=== PATIENT | female | born 1950 | race Caucasian/White ===

== ENCOUNTER → 2019-10-08 08:43 | Outpatient (CLI) | payer MEDICARE, OTHER, SELFPAY | PROVIDERS: Visit Provider Family Medicine | DX: I87.2 Venous insufficiency (chronic) (peripheral) (principal); L97.311 Non-pressure chronic ulcer of right ankle limited to breakdown of skin; L03.115 Cellulitis of right lower limb; Z91.19 Patient's noncompliance with other medical treatment and regimen | CPT/HCPCS: 11042; 87070; 87077; 87186; 87205; 99203; 99213 ==

== ENCOUNTER → 2019-10-15 08:28 | Outpatient (CLI) | payer MEDICARE, OTHER, SELFPAY | PROVIDERS: Visit Provider Family Medicine | DX: I87.2 Venous insufficiency (chronic) (peripheral) (principal); L97.311 Non-pressure chronic ulcer of right ankle limited to breakdown of skin; L03.115 Cellulitis of right lower limb; R60.0 Localized edema; Z91.19 Patient's noncompliance with other medical treatment and regimen | CPT/HCPCS: 97597 ==

== ENCOUNTER → 2019-10-22 09:22 | Outpatient (CLI) | payer MEDICARE, OTHER, SELFPAY | PROVIDERS: Visit Provider Family Medicine | DX: I87.2 Venous insufficiency (chronic) (peripheral) (principal); L97.811 Non-pressure chronic ulcer of other part of right lower leg limited to breakdown of skin; Z91.19 Patient's noncompliance with other medical treatment and regimen; R60.9 Edema, unspecified | CPT/HCPCS: 97597 ==

== ENCOUNTER → 2019-10-29 08:33 | Outpatient (CLI) | payer MEDICARE, OTHER, SELFPAY | PROVIDERS: Referring Provider Family Medicine; Visit Provider Family Medicine | DX: I87.2 Venous insufficiency (chronic) (peripheral) (principal); L97.311 Non-pressure chronic ulcer of right ankle limited to breakdown of skin; R60.0 Localized edema; Z91.19 Patient's noncompliance with other medical treatment and regimen | CPT/HCPCS: 97597 ==

== ENCOUNTER → 2019-11-04 08:42 | Outpatient (CLI) | payer MEDICARE, OTHER, SELFPAY | PROVIDERS: Referring Provider Family Medicine; Visit Provider Family Medicine | DX: I87.2 Venous insufficiency (chronic) (peripheral) (principal); L97.311 Non-pressure chronic ulcer of right ankle limited to breakdown of skin; R60.0 Localized edema | CPT/HCPCS: 87070; 87075; 87077; 87147; 87186; 87205; 97597; 99214 ==

== ENCOUNTER → 2019-11-12 08:32 | Outpatient (CLI) | payer MEDICARE, OTHER, SELFPAY | PROVIDERS: PCP Family Medicine; Referring Provider Family Medicine; Visit Provider Family Medicine | DX: I87.2 Venous insufficiency (chronic) (peripheral) (principal); L97.311 Non-pressure chronic ulcer of right ankle limited to breakdown of skin; R60.0 Localized edema; Z91.19 Patient's noncompliance with other medical treatment and regimen | CPT/HCPCS: 97597 ==

== ENCOUNTER → 2019-11-19 08:40 | Outpatient (CLI) | payer MEDICARE, OTHER, SELFPAY | PROVIDERS: PCP Family Medicine; Referring Provider Family Medicine; Visit Provider Family Medicine | DX: I87.2 Venous insufficiency (chronic) (peripheral) (principal); L97.311 Non-pressure chronic ulcer of right ankle limited to breakdown of skin; R60.0 Localized edema | CPT/HCPCS: 99213 ==

== ENCOUNTER → 2019-11-26 10:10 | Outpatient (CLI) | payer MEDICARE, OTHER, SELFPAY | PROVIDERS: PCP Family Medicine; Referring Provider Family Medicine; Visit Provider Family Medicine | DX: I87.2 Venous insufficiency (chronic) (peripheral) (principal); L97.311 Non-pressure chronic ulcer of right ankle limited to breakdown of skin; R60.0 Localized edema | CPT/HCPCS: 99213 ==

== ENCOUNTER → 2019-12-03 10:31 | Outpatient (CLI) | payer MEDICARE, OTHER, SELFPAY | PROVIDERS: PCP Family Medicine; Referring Provider Family Medicine; Visit Provider Family Medicine | DX: I87.2 Venous insufficiency (chronic) (peripheral) (principal); L97.311 Non-pressure chronic ulcer of right ankle limited to breakdown of skin; L97.811 Non-pressure chronic ulcer of other part of right lower leg limited to breakdown of skin; R60.0 Localized edema; Z91.19 Patient's noncompliance with other medical treatment and regimen | CPT/HCPCS: 11042 ==

== ENCOUNTER → 2019-12-10 08:54 | Outpatient (CLI) | payer MEDICARE, OTHER, SELFPAY | PROVIDERS: PCP Family Medicine; Referring Provider Family Medicine; Visit Provider Family Medicine | DX: I87.2 Venous insufficiency (chronic) (peripheral) (principal); L97.811 Non-pressure chronic ulcer of other part of right lower leg limited to breakdown of skin; R60.0 Localized edema; Z91.19 Patient's noncompliance with other medical treatment and regimen | CPT/HCPCS: 11042; 87070; 87075; 87077; 87147; 87186; 87205 ==

== ENCOUNTER → 2020-05-29 10:54 | Outpatient (ROUT) | payer MEDICARE, OTHER, SELFPAY ==
[2020-05-29 11:09] LABS: D Dimer 683 ng/mL (<230)
== END ==
PROVIDERS: PCP Family Medicine; Visit Provider Family Medicine
DX: L97.909 Non-pressure chronic ulcer of unspecified part of unspecified lower leg with unspecified severity (principal)
CPT/HCPCS: 85379

== ENCOUNTER → 2020-05-29 12:44 | Outpatient (CLI) | payer MEDICARE, OTHER, SELFPAY ==
--- NOTE | 2020-05-29 | DI.US.S_ITS ---
PROCEDURE: US PERIPH VENOUS LOW EXTREM RT INDICATIONS: PAIN, EDEMA TECHNIQUE: Real-time imaging, as well as color and pulse Doppler interrogation, were performed of the lower extremity deep veins from the inguinal ligament to the popliteal fossa. COMPARISON: None. FINDINGS: The common femoral, femoral and popliteal veins are normally compressible, and free of intraluminal thrombus. Color and pulse Doppler demonstrate normal phasic intraluminal flow. There is normal augmentation response to distal compression maneuver. There is superficial venous thrombosis seen within the greater saphenous vein, which is relatively extensive. IMPRESSION: No thuan deep venous thrombosis is seen. However, relatively extensive greater saphenous vein thrombosis is seen. Note: Concordant preliminary findings given by the rack pusher upon the completion of the examination to [place] at 1:49 p.m. on May 29, 2020. Dictated by: Isaiah Lemons M.D. on 05/29/2020 at 14:31 Approved by: Isaiah Lemons M.D. on 05/29/2020 at 14:32
== END ==
PROVIDERS: PCP Family Medicine; Referring Provider Family Medicine; Visit Provider Family Medicine
DX: I82.811 Embolism and thrombosis of superficial veins of right lower extremity (principal); R60.0 Localized edema; M79.604 Pain in right leg; L97.909 Non-pressure chronic ulcer of unspecified part of unspecified lower leg with unspecified severity
CPT/HCPCS: 85379; 93971

== ENCOUNTER 2020-12-07 15:09 | Emergency (ER) | payer MEDICARE, OTHER, SELFPAY ==
[2020-12-07] VITALS (17 sets, daily range): BP systolic 149–217; BP diastolic 75–111; PULSE 70–146; RESP 20–43; TEMP 37.1; O2SAT 81–99; BMI 44.8
--- NOTE | 2020-12-07 15:10 | DI.RAD.S_ITS ---
PROCEDURE: XR CHEST 1V INDICATIONS: chest pain TECHNIQUE: One view of the chest was acquired. COMPARISON: [facility], CT, CT ANGIO CHEST PE PROTOCOL, 12/07/2020, 16:33. FINDINGS: Surgical changes and devices: None. Lungs and pleura: Lungs are clear. No pleural effusions or pneumothorax. Mediastinum: Mediastinal contours appear normal. Heart is enlarged. Bones and chest wall: No suspicious bony lesions. Overlying soft tissues appear unremarkable. IMPRESSION: No acute cardiopulmonary disease process. Dictated by: Elisa Harmon MD, PhD on 12/07/2020 at 16:47 Approved by: Elisa Harmon MD, PhD on 12/07/2020 at 16:48
--- NOTE | 2020-12-07 15:23 | ED_ITS ---
HPI - SOB/Dyspnea General Chief Complaint: Shortness of Breath/Dyspnea Stated Complaint: SOB Time Seen by Provider: 12/07/20 15:20 Source: patient Mode of arrival: Wheelchair Limitations: no limitations History of Present Illness HPI Narrative: Patient is a 70-year-old female with prior history of DVT in April which was treated conservatively without any anticoagulation presents today with increasing shortness of breath. She says that she has not felt quite right for about the last 2 weeks. She has definitely nose over the past few days that her left leg is much more swollen. She is able to walk and be active. However today day for shortness of breath is significantly worse. She denies any chest pain she actually is found to be in AFib with RVR and was quite hypoxic on arrival. She denies any fever chills or COVID exposure. She denies any productive cough. No prior history of atrial fibrillation. MD Complaint: shortness of breath Onset (ago): day(s) Exacerbating factors: exertion Related Data Allergies Allergy/AdvReac Type Severity Reaction Status Date / Time No Known Drug Allergies Allergy Verified 12/07/20 15:30 Review of Systems Review of Systems ROS Unobtainable: All systems reviewed & are unremarkable except as noted in HPI and below Constitutional Constitutional: Denies chills, Denies fever(s), Denies lethargy and Denies weakness ENT Ears, Nose, Mouth, and Throat: Denies vertigo and Denies dizziness Cardiovascular Cardiovascular: Denies acrocyanosis, Denies chest pain, Reports irregular heart rhythm, Reports dyspnea, Reports dyspnea on exertion and Denies orthopnea Respiratory Respiratory: Reports as per HPI, Denies chest congestion, Denies cough, Reports dyspnea and Reports dyspnea on exertion Gastrointestinal Gastrointestinal: Denies abdominal pain, Denies change in bowel habits, Denies diarrhea, Denies nausea and Denies vomiting Musculoskeletal Musculoskeletal: Denies back pain, Denies myalgias and Denies muscle cramps Integumentary/Breasts Skin/Breast: Denies pruritus, Denies erythema, Denies rash and Denies wounds Neurologic Neurologic: Denies vertigo, Denies dizziness and Denies weakness Patient History Medical History DVT (deep venous thrombosis) Social History Smoking Status: Former smoker Exam Initial Vital Signs Initial Vital Signs: Vital Signs Pulse Rate 138 H 12/07/20 15:19 Respiratory Rate 23 12/07/20 15:19 Pulse Oximetry 99 12/07/20 15:19 GENERAL: Alert pleasant 70-year-old female and in no acute distress. HEENT: Head atraumatic,EOMI, pupils reactive, face symmetric, moist mucous membranes CARDIOVASCULAR: Regular rate and rhythm without murmurs, rubs or gallops. RESPIRATORY: Breath sounds equal bilaterally, no wheezes rales or rhonchi. ABDOMEN: Soft, nontender. Normoactive bowel sounds all 4 quadrants. No guarding or rebound. EXTREMITIES: Normal range of motion, no clubbing. Chronic venous stasis noted on right lower leg significant swelling of the left leg Neurovascularly intact NEUROLOGICAL: Alert and oriented x4.Normal gait and speech. Cranial nerves II through XII grossly intact. SKIN: Warm, dry, no laceration, no petechiae, no rashes or lesions. Course Orders Ordered: ED Orders 12/07/20 15:10 XR chest 1V Stat EKG-12 Lead Stat 12/07/20 15:15 COVID19 Stat 12/07/20 15:37 BNP [NT-proBNP (BNP-Adult 18+)] Stat Complete Blood Count AUTO DIFF Stat Comprehensive Metabolic Panel Stat Lipase Stat Partial Thromboplastin Time Stat Prothrombin Time INR Stat Troponin & CK Cardiac Panel Stat 12/07/20 15:42 CT angio chest PE protocol Stat US periph venous low extrem lt Stat Heparin Sodium/Dextrose (Heparin Drip) 25,000 unit in 500 mls @ 24 mls/hr IV CONT RADHA; Protocol Last Titration: 12/07/20 18:55 Dose: 0 units/hr, 0 mls/hr Documented by: Admin: 12/07/20 17:16 Dose: 1,200 units/hr, 24 mls/hr Documented by: ANKIT Discontinued Medications Diltiazem HCl (Diltiazem 5 Mg/Ml Sdv) 10 mg IV NOW ONE Stop: 12/07/20 15:43 Last Admin: 12/07/20 16:06 Dose: 10 mg Documented by: ANKIT Heparin Sodium (Porcine) (Heparin 5,000 Unit/Ml Vial) 7,500 unit IV NOW ONE Stop: 12/07/20 16:53 Last Admin: 12/07/20 17:14 Dose: 7,500 unit Documented by: ANKIT Vital Signs Vital signs: Vital Signs - 8 hr 12/07/20 15:19 12/07/20 15:22 12/07/20 15:30 Temperature 98.7 F Pulse Rate 138 H 138 H 146 H Respiratory Rate 23 28 H 29 H Blood Pressure 213/111 H Pulse Oximetry 99 81 L 97 12/07/20 15:45 12/07/20 16:00 12/07/20 16:06 Temperature Pulse Rate 143 H 134 H 138 H Respiratory Rate 40 H 26 H Blood Pressure 217/99 H Pulse Oximetry 94 94 12/07/20 16:08 12/07/20 16:15 12/07/20 16:18 Temperature Pulse Rate 133 H 88 91 H Respiratory Rate 20 22 25 H Blood Pressure 217/99 H 149/75 H Pulse Oximetry 94 96 95 12/07/20 16:47 12/07/20 17:00 12/07/20 17:15 Temperature Pulse Rate 70 116 H 125 H Respiratory Rate 20 25 H Blood Pressure Pulse Oximetry 84 L 97 99 12/07/20 17:30 12/07/20 17:45 12/07/20 18:00 Temperature Pulse Rate 120 H 128 H 131 H Respiratory Rate 28 H 23 37 H Blood Pressure Pulse Oximetry 98 99 99 12/07/20 18:15 12/07/20 18:30 Temperature Pulse Rate 114 H 137 H Respiratory Rate 27 H 43 H Blood Pressure Pulse Oximetry 98 98 MDM - SOB/Dyspnea Lab Data Attestation: I reviewed the patient's lab results. Result diagrams: 12/07/20 15:37 12/07/20 15:37 Labs: Lab Results 12/07/20 12/07/20 12/07/20 Range/Units 15:15 15:37 15:37 WBC 9.8 (4.5-11.0) X10^3/uL RBC 4.86 (4.0-5.2) X10^6/uL Hgb 13.7 (12.0-16.0) g/dL Hct 41.2 (36-46) % MCV 84.8 (80-100) fL MCH 28.1 (26-34) PG MCHC 33.1 (30-36) % RDW 14.3 (11.6-14.8) % Plt Count 230 (150-400) X10^3/uL Neut % (Auto) 78.9 H (50-75) % Lymph % (Auto) 14.2 L (25-40) % [place] % (Auto) 4.3 (3-14) % Eos % (Auto) 1.4 L (2-4) % Baso % (Auto) 1.2 (0-2) % Neut # (Auto) 7700 H (1768-6701) /uL Lymph # (Auto) 1400 (5881-6009) /uL [place] # (Auto) 400 (0-900) /uL Eos # (Auto) 100 (0-450) /uL Baso # (Auto) 100 (0-100) /uL PT 13.1 H (10.1-12.7) SECONDS INR 1.2 (0.9-1.3) APTT 29 (26.4-36.2) SECONDS Sodium (137-145) mmol/L Potassium (3.4-5.1) mmol/L Chloride (98-107) mmol/L Carbon Dioxide (22-32) mmol/L BUN (7-17) mg/dL Creatinine (0.52-1.04) mg/dL Estimated GFR (>60) mL/min BUN/Creatinine Ratio (6-22) Glucose (80-110) mg/dL Calcium (8.4-10.2) mg/dL Total Bilirubin (0.2-1.3) mg/dL AST (14-36) IU/L ALT (<35) IU/L Alkaline Phosphatase (38-126) U/L Total Creatine Kinase (30-135) U/L CK-MB (CK-2) CK-MB (CK-2) Rel Index Troponin I (0.01-0.034) ng/mL NT-Pro-B Natriuret Pep (<125) pg/mL Total Protein (6.3-8.2) g/dL Albumin (3.5-5.0) g/dL Globulin (1.7-4.1) g/dL Albumin/Globulin Ratio (1.0-2.8) Lipase (23-300) U/L SARS-CoV-2 (PCR) Negative (Negative) 12/07/20 Range/Units 15:37 WBC (4.5-11.0) X10^3/uL RBC (4.0-5.2) X10^6/uL Hgb (12.0-16.0) g/dL Hct (36-46) % MCV (80-100) fL MCH (26-34) PG MCHC (30-36) % RDW (11.6-14.8) % Plt Count (150-400) X10^3/uL Neut % (Auto) (50-75) % Lymph % (Auto) (25-40) % [place] % (Auto) (3-14) % Eos % (Auto) (2-4) % Baso % (Auto) (0-2) % Neut # (Auto) (5938-0062) /uL Lymph # (Auto) (8514-7392) /uL [place] # (Auto) (0-900) /uL Eos # (Auto) (0-450) /uL Baso # (Auto) (0-100) /uL PT (10.1-12.7) SECONDS INR (0.9-1.3) APTT (26.4-36.2) SECONDS Sodium 139 (137-145) mmol/L Potassium 4.2 (3.4-5.1) mmol/L Chloride 105 (98-107) mmol/L Carbon Dioxide 26 (22-32) mmol/L BUN 21 H (7-17) mg/dL Creatinine 1.13 H (0.52-1.04) mg/dL Estimated GFR 47.3 L (>60) mL/min BUN/Creatinine Ratio 18.6 (6-22) Glucose 148 H (80-110) mg/dL Calcium 9.8 (8.4-10.2) mg/dL Total Bilirubin 0.9 (0.2-1.3) mg/dL AST 25 (14-36) IU/L ALT 16 (<35) IU/L Alkaline Phosphatase 93 (38-126) U/L Total Creatine Kinase 53 (30-135) U/L CK-MB (CK-2) TNP CK-MB (CK-2) Rel Index TNP Troponin I 0.062 H (0.01-0.034) ng/mL NT-Pro-B Natriuret Pep 1700 H (<125) pg/mL Total Protein 8.3 H (6.3-8.2) g/dL Albumin 4.4 (3.5-5.0) g/dL Globulin 3.9 (1.7-4.1) g/dL Albumin/Globulin Ratio 1.1 (1.0-2.8) Lipase 87 (23-300) U/L SARS-CoV-2 (PCR) (Negative) Imaging Data CT scan - chest: Radiologist's Impression: PROCEDURE: CT ANGIO CHEST PE PROTOCOL INDICATIONS: hypoxia TECHNIQUE: After the administration of intravenous contrast, 2 mm thick sections acquired from the pulmonary apices to the posterior costophrenic angles. 3-dimensional maximum intensity projection (MIP) coronal and sagittal reformats were then acquired through the thorax. For radiation dose reduction, the following was used: automated exposure control, adjustment of mA and/or kV according to patient size. COMPARISON: None. FINDINGS: Image quality: Excellent. Pulmonary arteries: Large bilateral saddle emboli are noted in the main pulmonary arteries extending into the bilateral upper, bilateral lower and right middle lobar arteries, segmental arteries and subsegmental arteries. Lungs and pleura: Lungs are clear. No pleural effusions or pneumothorax. Central and peripheral airways are patent. Mediastinum: Heart size is normal, without pericardial effusion. Heart RV/LV ratio approximately 1.25. Atherosclerotic calcifications are noted in the aorta, great vessels and the coronary vasculature. No mediastinal or hilar adenopathy. Thoracic aorta is normal in caliber and enhancement. Esophagus is normal in caliber. Small hiatal hernia. Bones and chest wall: No suspicious bony lesions. Ribs and thoracic spine appear intact throughout. Thyroid gland is within normal limits No axillary or supraclavicular adenopathy. Abdomen: Left kidney is atrophied. Visualized upper abdominal solid organs appear normal in the early arterial phase of enhancement. IMPRESSION: 1. Large bilateral pulmonary artery saddle emboli with CT evidence of right heart strain. 2. Left renal atrophy. 3. Atherosclerosis including the coronary vasculature. Findings discussed with Dr. Connell on December 07, 2020 at 4:57 p.m.. Dictated by: Elisa Harmon MD, PhD on 12/07/2020 at 16:49 US - DVT: Radiologist's Impression: PROCEDURE: US PERIPH VENOUS LOW EXTREM LT INDICATIONS: LEFT LEG SWELLING TECHNIQUE: Real-time imaging, as well as color and pulse Doppler interrogation, were performed of the lower extremity deep veins from the inguinal ligament to the popliteal f jennie. COMPARISON: None. FINDINGS: There is thrombus within the mid to distal femoral vein (SFV) as well as the popliteal vein. The greater saphenous vein, common femoral and deep femoral vein appear patent. IMPRESSION: Deep venous thrombosis within the left lower extremity involving the mid femoral vein to the level of the popliteal vein. Dictated by: Willian Torrez M.D. on 12/07/2020 at 18:43 ECG Data Attestation: I personally reviewed and interpreted this ECG as follows: Interpretation: Atrial fibrillation rate [address] changes no priors to compare EKG 2. Atrial fibrillation rate 87 MDM Narrative Medical decision making narrative: Patient has new onset atrial fibrillation with worsening sudden onset shortness of breath. Initially hypoxic concerned for pulmonary embolism. CT does confirm large saddle pulmonary embolism. She actually is hemodynamically is stable we have been able to turn down and initial over to however she remains in AFib. Blood pressure initially was quite hypertensive but improved after 1 dose of diltiazem now 149/75. CT does show large saddle PE with evidence of right heart strain. Patient is candidate for intervention. She is placed immediately on a heparin drip. 1800 Dr. Holder, hospitalist at [facility] obtain patient's symptoms test results off the recommends that patient be transferred ED to ED for quicker evaluation 1810 Dr. Allen, ED physician updated on patient's symptoms test results agrees with transfer Critical Care Time Critical Care Time Critical Care Time: Yes Total Critical Care Time: 45 Attestation: The high probability of a clinically significant, sudden or life threatening deterioration of the [cardiovascular] system(s) required my full and direct attention, intervention and personal management. The aggregate critical care time was [45] minutes. This time is in addition to time spent performing reported procedures but includes the following: [x] Data Review and interpretation [x] Patient assessment and monitoring of vital signs [x] Documentation [x] Medication orders and management Discharge Plan Departure Patient Disposition: [facility] Clinical Impression: Pulmonary embolism Qualifiers: Pulmonary embolism type: saddle Chronicity: acute Acute cor pulmonale presence: with acute cor pulmonale Qualified Code(s): I26.02 - Saddle embolus of pulmonary artery with acute cor pulmonale
--- NOTE | 2020-12-07 15:42 | DI.CT.S_ITS ---
PROCEDURE: CT ANGIO CHEST PE PROTOCOL INDICATIONS: hypoxia TECHNIQUE: After the administration of intravenous contrast, 2 mm thick sections acquired from the pulmonary apices to the posterior costophrenic angles. 3-dimensional maximum intensity projection (MIP) coronal and sagittal reformats were then acquired through the thorax. For radiation dose reduction, the following was used: automated exposure control, adjustment of mA and/or kV according to patient size. COMPARISON: None. FINDINGS: Image quality: Excellent. Pulmonary arteries: Large bilateral saddle emboli are noted in the main pulmonary arteries extending into the bilateral upper, bilateral lower and right middle lobar arteries, segmental arteries and subsegmental arteries. Lungs and pleura: Lungs are clear. No pleural effusions or pneumothorax. Central and peripheral airways are patent. Mediastinum: Heart size is normal, without pericardial effusion. Heart RV/LV ratio approximately 1.25. Atherosclerotic calcifications are noted in the aorta, great vessels and the coronary vasculature. No mediastinal or hilar adenopathy. Thoracic aorta is normal in caliber and enhancement. Esophagus is normal in caliber. Small hiatal hernia. Bones and chest wall: No suspicious bony lesions. Ribs and thoracic spine appear intact throughout. Thyroid gland is within normal limits No axillary or supraclavicular adenopathy. Abdomen: Left kidney is atrophied. Visualized upper abdominal solid organs appear normal in the early arterial phase of enhancement. IMPRESSION: 1. Large bilateral pulmonary artery saddle emboli with CT evidence of right heart strain. 2. Left renal atrophy. 3. Atherosclerosis including the coronary vasculature. Findings discussed with Dr. Connell on December 07, 2020 at 4:57 p.m.. Dictated by: Elisa Harmon MD, PhD on 12/07/2020 at 16:49 Approved by: Elisa Harmon MD, PhD on 12/07/2020 at 17:01
--- NOTE | 2020-12-07 15:42 | DI.US.S_ITS ---
PROCEDURE: US PERIPH VENOUS LOW EXTREM LT INDICATIONS: LEFT LEG SWELLING TECHNIQUE: Real-time imaging, as well as color and pulse Doppler interrogation, were performed of the lower extremity deep veins from the inguinal ligament to the popliteal fossa. COMPARISON: None. FINDINGS: There is thrombus within the mid to distal femoral vein (SFV) as well as the popliteal vein. The greater saphenous vein, common femoral and deep femoral vein appear patent. IMPRESSION: Deep venous thrombosis within the left lower extremity involving the mid femoral vein to the level of the popliteal vein. Dictated by: Willian Torrez M.D. on 12/07/2020 at 18:43 Approved by: Willian Torrez M.D. on 12/07/2020 at 18:44
[2020-12-07 15:45] LABS: Add Manual Diff / Slide Review NO; Basophils Absolute Auto 100 /uL (0-100); Basophils Percent Auto 1.2 % (0-2); Eosinophils Absolute Auto 100 /uL (0-450); Eosinophils Percent Auto 1.4 % (2-4); Hematocrit 41.2 % (36-46); Hemoglobin 13.7 g/dL (12.0-16.0); Lymphocytes Absolute Auto 1400 /uL (1100-4500); Lymphocytes Percent Auto 14.2 % (25-40); Mean Corpuscular HGB Conc 33.1 % (30-36); Mean Corpuscular Hemoglobin 28.1 PG (26-34); Mean Corpuscular Volume 84.8 fL (80-100); Monocytes Absolute Auto 400 /uL (0-900); Monocytes Percent Auto 4.3 % (3-14); Neutrophils Absolute Auto 7700 /uL (1500-7000); Neutrophils Percent Auto 78.9 % (50-75); Platelet Count 230 X10^3/uL (150-400); Red Blood Cell Count 4.86 X10^6/uL (4.0-5.2); Red Cell Distribution Width 14.3 % (11.6-14.8); White Blood Cell Count 9.8 X10^3/uL (4.5-11.0)
[2020-12-07 15:52] LABS: COVID19 -Nasal RAPID Negative (Negative)
[2020-12-07 15:53] LABS: INR 1.2 (0.9-1.3); Prothrombin Time 13.1 SECONDS (10.1-12.7)
[2020-12-07 15:55] LABS: PTT Partial Thromboplastin Tim 29 SECONDS (26.4-36.2)
[2020-12-07 15:57] LABS: Alanine Aminotransferase 16 IU/L (<35); Albumin 4.4 g/dL (3.5-5.0); Albumin Globulin Ratio 1.1 (1.0-2.8); Alkaline Phosphatase 93 U/L (38-126); Aspartate Aminotransferase 25 IU/L (14-36); BUN Creatinine Ratio 18.6 (6-22); Bilirubin Total 0.9 mg/dL (0.2-1.3); Blood Urea Nitrogen 21 mg/dL (7-17); Calcium 9.8 mg/dL (8.4-10.2); Carbon Dioxide 26 mmol/L (22-32); Chloride 105 mmol/L (98-107); Creatine Kinase 53 U/L (30-135); Estimated Glomerular Filt Rate 47.3 mL/min (>60); Globulin 3.9 g/dL (1.7-4.1); Glucose 148 mg/dL (80-110); HEMOLYSIS < 15 (0-50); Lipase 87 U/L (23-300); Potassium 4.2 mmol/L (3.4-5.1); Sodium 139 mmol/L (137-145); Total Protein 8.3 g/dL (6.3-8.2)
[2020-12-07] MEDS: dilTIAZem 5 MG/ML SDV 10 MG IV (16:06)
[2020-12-07 16:09] LABS: NT-proBNP (BNP-Adult 18+) 1700 pg/mL (<125); Troponin I 0.062 ng/mL (0.01-0.034)
[2020-12-07] MEDS: HEPARIN 5,000 UNIT/ML VIAL 7500 UNIT IV (17:14)
[2020-12-07] MEDS: HEPARIN DRIP 25,000 UNIT/500 ML IV.SOLN 24 UNIT IV (17:16)
--- NOTE | 2020-12-07 17:25 | PC.NURSE ---
heparin infusion rate and bolus dosage checked with Tri RN
--- NOTE | 2020-12-07 18:14 | PC.NURSE ---
a&o x 4, neuro in tact, using cell phone with no difficulties communicating with family. denies needs at this time
--- NOTE | 2020-12-07 18:55 | PC.NURSE ---
Heparin continued w/ [facility]. Please see their documentation.
== END 2020-12-07 19:24 | disposition short-term general hospital (02) ==
PROVIDERS: Emergency Provider Emergency Medicine
DX: I26.02 Saddle embolus of pulmonary artery with acute cor pulmonale (principal); R09.02 Hypoxemia; I48.91 Unspecified atrial fibrillation; Z20.822 Contact with and (suspected) exposure to COVID-19
CPT/HCPCS: 36415; 71045; 71275; 80053; 82550; 83690; 83880; 84484; 85025; 85610; 85730; 87635; 93005; 93010; 93971; 96365; 96366; 96375; 99285; 99291; C9803; J1644; Q9967

== ENCOUNTER 2021-08-30 16:01 | Observation (INO) | payer MEDICARE, OTHER, SELFPAY ==
[2021-08-30] VITALS (10 sets, daily range): BP systolic 105–150; BP diastolic 61–77; PULSE 68–117; RESP 15–47; TEMP 36.3–36.6; O2SAT 89–99; BMI 45.4
--- NOTE | 2021-08-30 16:27 | DI.RAD.S_ITS ---
PROCEDURE: XR CHEST 2V INDICATIONS: shortness of breath TECHNIQUE: 2 views of the chest were acquired. COMPARISON: [facility], CR, XR CHEST 1V, 12/07/2020, 15:14. FINDINGS: Surgical changes and devices: None. Lungs and pleura: Mild bilateral right greater than left perihilar and basilar reticulonodular opacity. No pleural effusions or pneumothorax. Mediastinum: Mediastinal contours are normal. Heart size is enlarged. Bones and chest wall: No suspicious bony abnormalities. Soft tissues appear unremarkable. IMPRESSION: Mild atypical pneumonia. Dictated by: Marco Mansfield M.D. on 08/30/2021 at 16:45 Approved by: Marco Mansfield M.D. on 08/30/2021 at 16:46
[2021-08-30 17:37] LABS: INR 3.8 (0.9-1.3); Prothrombin Time 43.4 SECONDS (10.1-12.7)
[2021-08-30 17:45] LABS: Creatine Kinase 63 U/L (30-135); Lactate (Lactic Acid) 1.5 mmol/L (0.7-2.1)
[2021-08-30 17:52] LABS: Add Manual Diff / Slide Review NO; Basophils Absolute Auto 100 /uL (0-100); Basophils Percent Auto 1.3 % (0-2); Eosinophils Absolute Auto 100 /uL (0-450); Eosinophils Percent Auto 1.3 % (2-4); Hematocrit 37.5 % (36-46); Hemoglobin 12.1 g/dL (12.0-16.0); Lymphocytes Absolute Auto 1100 /uL (1100-4500); Lymphocytes Percent Auto 16.7 % (25-40); Mean Corpuscular HGB Conc 32.4 % (30-36); Mean Corpuscular Volume 83.5 fL (80-100); Monocytes Absolute Auto 700 /uL (0-900); Monocytes Percent Auto 9.9 % (3-14); Neutrophils Absolute Auto 4700 /uL (1500-7000); Neutrophils Percent Auto 70.8 % (50-75); Platelet Count 206 X10^3/uL (150-400); Red Blood Cell Count 4.49 X10^6/uL (4.0-5.2); Red Cell Distribution Width 16.5 % (11.6-14.8); White Blood Cell Count 6.6 X10^3/uL (4.5-11.0)
[2021-08-30 17:54] LABS: NT-proBNP (BNP-Adult 18+) 3410 pg/mL (<125)
[2021-08-30 17:56] LABS: Troponin I < 0.012 ng/mL (0.01-0.034)
[2021-08-30 18:04] LABS: Alanine Aminotransferase 43 IU/L (<35); Albumin 4.1 g/dL (3.5-5.0); Albumin Globulin Ratio 1.1 (1.0-2.8); Alkaline Phosphatase 104 U/L (38-126); Aspartate Aminotransferase 64 IU/L (14-36); BUN Creatinine Ratio 19.4 (6-22); Bilirubin Total 1.6 mg/dL (0.2-1.3); Blood Urea Nitrogen 21 mg/dL (7-17); Calcium 9.6 mg/dL (8.4-10.2); Carbon Dioxide 20 mmol/L (22-32); Chloride 109 mmol/L (98-107); Estimated Glomerular Filt Rate 49.9 mL/min (>60); Globulin 3.7 g/dL (1.7-4.1); Glucose 110 mg/dL (80-110); Potassium 4.5 mmol/L (3.4-5.1); Sodium 140 mmol/L (137-145); Total Protein 7.8 g/dL (6.3-8.2)
[2021-08-30 18:07] LABS: HEMOLYSIS 43 (0-50)
--- NOTE | 2021-08-30 18:41 | DI.CT.S_ITS ---
PROCEDURE: CT ANGIO CHEST PE PROTOCOL INDICATIONS: SOB, prior saddle embolism TECHNIQUE: After the administration of intravenous contrast, 2 mm thick sections acquired from the pulmonary apices to the posterior costophrenic angles. 3-dimensional maximum intensity projection (MIP) coronal and sagittal reformats were then acquired through the thorax. For radiation dose reduction, the following was used: automated exposure control, adjustment of mA and/or kV according to patient size. COMPARISON: [facility], [place], CT ANGIO CHEST PE PROTOCOL, 12/07/2020, 16:33. FINDINGS: Image quality: Excellent. Pulmonary arteries: The patient previously had bilateral saddle emboli. Pulmonary emboli in the right have resolved and pulmonary emboli on the left are significantly smaller with recanalization of the left upper lobe and lingula and with continued thrombosis of the left lower lobe pulmonary artery branches. Lungs and pleura: Diffuse bilateral airspace opacities are seen consistent with mild pulmonary edema. No pleural effusions or pneumothorax. Central and peripheral airways are patent. There is a small right pleural effusion Mediastinum: Heart size is normal, without pericardial effusion. No mediastinal or hilar adenopathy. Thoracic aorta is normal in caliber and enhancement. Esophagus is normal in caliber, without hiatal hernia. Bones and chest wall: No suspicious bony lesions. Ribs and thoracic spine appear intact throughout. Thyroid gland is normal. Anasarca is noted in the upper abdomen soft tissues. No axillary or supraclavicular adenopathy. Abdomen: Visualized upper abdominal solid organs appear normal in the early arterial phase of enhancement. IMPRESSION: 1. Significantly improved bilateral pulmonary emboli with residual thrombus only in the left lower lobe pulmonary arteries. 2. Small right pleural effusion. 3. Diffuse ground-glass opacities consistent with mild pulmonary edema. 4. Anasarca is noted Dictated by: Enrique Ruvalcaba M.D. on 08/30/2021 at 19:16 Approved by: Enrique Ruvalcaba M.D. on 08/30/2021 at 19:22
[2021-08-30] MEDS: FUROSEMIDE 40 MG/4 ML VIAL IV (18:48)
[2021-08-30 19:01] LABS: COVID19 - ADMIT (NP swab/PCR) Negative (Negative)
--- NOTE | 2021-08-30 19:29 | ED.SOB ---
HPI - SOB/Dyspnea <Franklin Vázquez PA-C - Last Filed: 08/30/21 20:28> General Chief Complaint: Shortness of Breath/Dyspnea Stated Complaint: Legs swelling, HX pulmonary embolism November, Time Seen by Provider: 08/30/21 17:18 Source: patient Mode of arrival: Wheelchair Limitations: no limitations History of Present Illness HPI Narrative: 70-year-old female with PMH afib, Saddle PE, deep venous insufficiency presents to the ED with worsening bilateral lower extremity edema, shortness of breath. Patient stays her symptoms have been worsening over the last month, her leg swelling significantly increased which caused her to come to the ED today. Patient denies a prior diagnosis of CHF. Patient was diagnosed with a saddle embolism in November 2020, underwent surgery for it. Patient is on Xarelto for the AFib and PE. Patient states she is on lisinopril, metoprolol, amlodipine, spironolactone, Xarelto. Patient denies fever, chills, chest pain, cough, nausea, vomiting, abdominal pain, dysuria, lightheadedness, dizziness, syncope. Related Data Home Medications Medication Instructions Recorded Confirmed amlodipine 10 mg tablet See Rx Instructions .ROUTE .COMPLEX 08/30/21 08/30/21 rivaroxaban 20 mg tablet (Xarelto) See Rx Instructions .ROUTE .COMPLEX 08/30/21 08/30/21 spironolactone 25 mg tablet See Rx Instructions .ROUTE .COMPLEX 08/30/21 08/30/21 Previous Rx's Medication Instructions Recorded furosemide 40 mg tablet 40 mg PO 0800,1700 #60 tab 09/01/21 Allergies Allergy/AdvReac Type Severity Reaction Status Date / Time No Known Drug Allergies Allergy Verified 08/30/21 16:27 Review of Systems <Franklin Vázquez PA-C - Last Filed: 08/30/21 20:28> Review of Systems ROS Unobtainable: All systems reviewed & are unremarkable except as noted in HPI and below Constitutional Constitutional: Denies chills, Denies fatigue, Denies fever(s), Denies frequent falls, Denies lethargy and Denies weakness Eyes Eyes: Denies change in vision, Denies eye discharge, Denies irritation and Denies loss of vision ENT Ears, Nose, Mouth, and Throat: Denies change in voice, Denies dizziness, Denies neck pain, Denies sore throat and Denies throat swelling Cardiovascular Cardiovascular: Denies chest pain, Denies irregular heart rhythm, Reports leg edema, Denies lightheadedness, Denies palpitations, Reports dyspnea, Reports dyspnea on exertion and Denies orthopnea Respiratory Respiratory: Denies cough, Reports dyspnea, Reports dyspnea on exertion and Denies wheezing Gastrointestinal Gastrointestinal: Denies abdominal pain, Denies change in bowel habits, Denies diarrhea, Denies nausea and Denies vomiting Genitourinary Genitourinary: Denies hematuria, Denies flank pain, Denies urinary incontinence and Denies urinary urgency Musculoskeletal Musculoskeletal: Denies back pain, Denies muscle weakness, Denies neck pain, Denies numbness and Denies tingling Integumentary/Breasts Skin/Breast: Denies pruritus, Denies erythema, Denies rash and Denies wounds Neurologic Neurologic: Denies behavioral changes, Denies confusion, Denies dizziness, Denies frequent falls, Denies loss of vision, Denies numbness, Denies tingling and Denies weakness Psychiatric Psychiatric: Denies anxiety, Denies behavioral changes, Denies confusion, Denies depression, Denies homicidal ideation and Denies suicidal ideation Endocrine Endocrine: Denies fatigue, Denies flushing and Denies palpitations Hematologic/Lymphatic Hematologic/Lymphatic: Denies easy bruising Allergic/Immunologic Allergic/Immunologic: Denies urticaria, Denies throat swelling and Denies wheezing Patient History <Franklin Vázquez PA-C - Last Filed: 08/30/21 20:28> Medical History (Updated 08/31/21 @ 00:29 by Suha Chisholm MD) Chronic venous stasis dermatitis DVT (deep venous thrombosis) Hypertension Longstanding persistent atrial fibrillation Surgical History (Updated 08/31/21 @ 00:30 by Suha Chisholm MD) History of embolectomy Family History (Updated 08/31/21 @ 00:30 by Suha Chisholm MD) Father Advanced cirrhosis of liver Social History household members: none Smoking Status: Never smoker Smoking Status: Never smoker tobacco type: cigarettes alcohol intake frequency: a few times a month Substance Use Type: does not use Exam <Franklin Vázquez PA-C - Last Filed: 08/30/21 20:28> Initial Vital Signs Initial Vital Signs: Vital Signs Temperature 97.9 F 08/30/21 16:23 Pulse Rate 70 08/30/21 16:23 Respiratory Rate 20 08/30/21 16:23 Blood Pressure 143/65 H 08/30/21 16:23 Pulse Oximetry 98 08/30/21 16:23 Const General: cooperative and comfortable HENMT Head: normal to inspection Eyes General: appearance normal, both eyes and all related structures Neck Neck: normal visual inspection Chest Chest: normal inspection of the chest Resp Effort & Inspection: normal respiratory effort Auscultation: clear to auscultation bilaterally Cardio Rate: regular rate Rhythm: regular rhythm GI Inspection: normal to inspection Other: Abdomen is soft, nondistended, nontender to palpation. No CVA tenderness. General: No CVA tenderness Skin Other: Patient's right leg wounds from venous insufficiency weeping. Neuro General: patient alert, patient awake and patient oriented x3 Extrem Other: Bilateral lower extremity edema, left greater than right. <Vivian Darby MD - Last Filed: 09/04/21 23:58> Initial Vital Signs Initial Vital Signs: Vital Signs Temperature 97.9 F 08/30/21 16:23 Pulse Rate 70 08/30/21 16:23 Respiratory Rate 20 08/30/21 16:23 Blood Pressure 143/65 H 08/30/21 16:23 Pulse Oximetry 98 08/30/21 16:23 Course <Franklin Vázquez PA-C - Last Filed: 08/30/21 20:28> Course Course Narrative: NT proBNP elevated to 3410, consistent with acute CHF exacerbation. CT PE shows improved PE burden bilaterally, small pleural effusion, pulmonary edema, anasarca. Will give Lasix IV 40 mg. Will repeat troponin, EKG. Cardiology consulted and per Dr. Ibanez, continue diuresis with IV Lasix until euvolemic, admit. Consulted hospitalist Dr. Chisholm, she will admit patient for observation and further diuresis. Orders Ordered: Discontinued Medications Acetaminophen (Acetaminophen 325 Mg Tablet) 650 mg PO Q6HR PRN PRN Reason: Fever/Mild Pain (1-3) Amlodipine Besylate (Amlodipine 5 Mg Tablet) 10 mg PO DAILY [facility] Last Admin: 09/01/21 08:31 Dose: 10 mg Documented by: Admin: 08/31/21 08:58 Dose: 10 mg Documented by: CRUZ Aspirin (Aspirin 325 Mg Tablet) 325 mg PO NOW ONE Stop: 08/30/21 19:41 Last Admin: 08/30/21 19:55 Dose: Not Given Documented by: GUMARO Docusate Sodium (Docusate 100 Mg Capsule) 100 mg PO BID [facility] Last Admin: 09/01/21 08:33 Dose: Not Given Documented by: Admin: 08/31/21 20:30 Dose: Not Given Documented by: Admin: 08/31/21 08:59 Dose: Not Given Documented by: CRUZ Furosemide (Furosemide 40 Mg/4 Ml Vial) 40 mg IV NOW ONE Stop: 08/30/21 18:42 Last Admin: 08/30/21 18:48 Dose: 40 mg Documented by: GUMARO Furosemide (Furosemide 40 Mg/4 Ml Vial) 40 mg IV Q12HR [facility] Stop: 08/31/21 13:00 Last Admin: 08/31/21 12:54 Dose: 40 mg Documented by: CHRIS Furosemide (Furosemide 40 Mg Tablet) 40 mg PO 0800,1700 [facility] Last Admin: 09/01/21 08:36 Dose: 40 mg Documented by: Admin: 08/31/21 20:01 Dose: Not Given Documented by: STEPHANI Lisinopril (Lisinopril 20 Mg Tablet) 20 mg PO DAILY [facility] Last Admin: 08/31/21 08:59 Dose: 20 mg Documented by: CRUZ Lisinopril (Lisinopril 20 Mg Tablet) 20 mg PO NOW ONE Stop: 08/31/21 00:47 Last Admin: 08/31/21 01:06 Dose: 20 mg Documented by: NICK Magnesium Hydroxide (Magnesium Hydroxide 30 Ml Udc) 30 ml PO DAILY PRN PRN Reason: Constipation Metoprolol Succinate (Metoprolol Er 50 Mg Tablet) 100 mg PO DAILY [facility] Last Admin: 09/01/21 08:33 Dose: Not Given Documented by: Admin: 08/31/21 08:58 Dose: 100 mg Documented by: CRUZ Metoprolol Tartrate (Metoprolol Ir 50 Mg Tablet) 100 mg PO NOW ONE Stop: 08/31/21 00:47 Last Admin: 08/31/21 01:05 Dose: 100 mg Documented by: NICK Morphine Sulfate (Morphine 2 Mg/Ml Inj) 2 mg IV Q4HR PRN PRN Reason: Pain, Moderate (4-6) Naloxone HCl (Naloxone 0.4 Mg/Ml Vial) 0.2 mg IV Q2MIN PRN PRN Reason: Opiate Reversal Ondansetron HCl (Ondansetron 4 Mg/2 Ml Inj) 4 mg IV Q8HR PRN PRN Reason: Nausea And Vomiting Oxycodone HCl (Oxycodone Ir 5 Mg Tablet) 5 mg PO Q6HR PRN PRN Reason: Pain, Moderate (4-6) Potassium Chloride (Potassium Chloride 20 Meq Tab) 20 meq PO BIDWM [facility] Last Admin: 09/01/21 08:31 Dose: 20 meq Documented by: Admin: 08/31/21 18:28 Dose: 20 meq Documented by: Admin: 08/31/21 07:52 Dose: 20 meq Documented by: CRUZ Rivaroxaban (Rivaroxaban 10 Mg Tablet) 15 mg PO DAILYCC [facility] Last Admin: 08/31/21 01:07 Dose: Not Given Documented by: NICK Rivaroxaban (Rivaroxaban 10 Mg Tablet) 20 mg PO DAILYCC [facility] Last Admin: 09/01/21 08:30 Dose: 20 mg Documented by: Admin: 08/31/21 07:52 Dose: 20 mg Documented by: CRUZ Sennosides (Sennosides 8.6 Mg Tablet) 17.2 mg PO BEDTIME [facility] Last Admin: 08/31/21 20:30 Dose: Not Given Documented by: STEPHANI Sodium Chloride (Sodium Chloride 0.9% Flush) 10 ml IV PRN PRN PRN Reason: Flush Last Admin: 08/31/21 12:55 Dose: 10 ml Documented by: CHRIS Sodium Chloride (Sodium Chloride 0.9% Flush) 10 ml IV BID [facility] Last Admin: 09/01/21 10:43 Dose: 10 ml Documented by: Admin: 08/31/21 20:32 Dose: 10 ml Documented by: Admin: 08/31/21 08:59 Dose: 10 ml Documented by: CRUZ Spironolactone (Spironolactone 25 Mg Tablet) 25 mg PO DAILY [facility] Last Admin: 09/01/21 10:33 Dose: Not Given Documented by: Admin: 08/31/21 12:54 Dose: 25 mg Documented by: CHRIS Vital Signs Vital signs: Vital Signs - 8 hr 08/30/21 16:23 08/30/21 17:43 08/30/21 17:45 Temperature 97.9 F Pulse Rate 70 85 79 Respiratory Rate 20 26 H 33 H Blood Pressure 143/65 H 150/77 H Pulse Oximetry 98 96 08/30/21 18:00 08/30/21 18:30 08/30/21 19:03 Temperature Pulse Rate 69 72 101 H Respiratory Rate 19 41 H 47 H Blood Pressure 138/65 121/77 Pulse Oximetry 95 92 <Vivian Darby MD - Last Filed: 09/04/21 23:58> Orders Ordered: Discontinued Medications Acetaminophen (Acetaminophen 325 Mg Tablet) 650 mg PO Q6HR PRN PRN Reason: Fever/Mild Pain (1-3) Amlodipine Besylate (Amlodipine 5 Mg Tablet) 10 mg PO DAILY [facility] Last Admin: 09/01/21 08:31 Dose: 10 mg Documented by: Admin: 08/31/21 08:58 Dose: 10 mg Documented by: CRUZ Aspirin (Aspirin 325 Mg Tablet) 325 mg PO NOW ONE Stop: 08/30/21 19:41 Last Admin: 08/30/21 19:55 Dose: Not Given Documented by: GUMARO Docusate Sodium (Docusate 100 Mg Capsule) 100 mg PO BID [facility] Last Admin: 09/01/21 08:33 Dose: Not Given Documented by: Admin: 08/31/21 20:30 Dose: Not Given Documented by: Admin: 08/31/21 08:59 Dose: Not Given Documented by: CRUZ Furosemide (Furosemide 40 Mg/4 Ml Vial) 40 mg IV NOW ONE Stop: 08/30/21 18:42 Last Admin: 08/30/21 18:48 Dose: 40 mg Documented by: GUMARO Furosemide (Furosemide 40 Mg/4 Ml Vial) 40 mg IV Q12HR [facility] Stop: 08/31/21 13:00 Last Admin: 08/31/21 12:54 Dose: 40 mg Documented by: CHRIS Furosemide (Furosemide 40 Mg Tablet) 40 mg PO 0800,1700 [facility] Last Admin: 09/01/21 08:36 Dose: 40 mg Documented by: Admin: 08/31/21 20:01 Dose: Not Given Documented by: STEPHANI Lisinopril (Lisinopril 20 Mg Tablet) 20 mg PO DAILY [facility] Last Admin: 08/31/21 08:59 Dose: 20 mg Documented by: CRUZ Lisinopril (Lisinopril 20 Mg Tablet) 20 mg PO NOW ONE Stop: 08/31/21 00:47 Last Admin: 08/31/21 01:06 Dose: 20 mg Documented by: NICK Magnesium Hydroxide (Magnesium Hydroxide 30 Ml Udc) 30 ml PO DAILY PRN PRN Reason: Constipation Metoprolol Succinate (Metoprolol Er 50 Mg Tablet) 100 mg PO DAILY [facility] Last Admin: 09/01/21 08:33 Dose: Not Given Documented by: Admin: 08/31/21 08:58 Dose: 100 mg Documented by: CRUZ Metoprolol Tartrate (Metoprolol Ir 50 Mg Tablet) 100 mg PO NOW ONE Stop: 08/31/21 00:47 Last Admin: 08/31/21 01:05 Dose: 100 mg Documented by: NICK Morphine Sulfate (Morphine 2 Mg/Ml Inj) 2 mg IV Q4HR PRN PRN Reason: Pain, Moderate (4-6) Naloxone HCl (Naloxone 0.4 Mg/Ml Vial) 0.2 mg IV Q2MIN PRN PRN Reason: Opiate Reversal Ondansetron HCl (Ondansetron 4 Mg/2 Ml Inj) 4 mg IV Q8HR PRN PRN Reason: Nausea And Vomiting Oxycodone HCl (Oxycodone Ir 5 Mg Tablet) 5 mg PO Q6HR PRN PRN Reason: Pain, Moderate (4-6) Potassium Chloride (Potassium Chloride 20 Meq Tab) 20 meq PO BIDWM [facility] Last Admin: 09/01/21 08:31 Dose: 20 meq Documented by: Admin: 08/31/21 18:28 Dose: 20 meq Documented by: Admin: 08/31/21 07:52 Dose: 20 meq Documented by: CRUZ Rivaroxaban (Rivaroxaban 10 Mg Tablet) 15 mg PO DAILYCC [facility] Last Admin: 08/31/21 01:07 Dose: Not Given Documented by: NICK Rivaroxaban (Rivaroxaban 10 Mg Tablet) 20 mg PO DAILYCC [facility] Last Admin: 09/01/21 08:30 Dose: 20 mg Documented by: Admin: 08/31/21 07:52 Dose: 20 mg Documented by: CRUZ Sennosides (Sennosides 8.6 Mg Tablet) 17.2 mg PO BEDTIME [facility] Last Admin: 08/31/21 20:30 Dose: Not Given Documented by: STEPHANI Sodium Chloride (Sodium Chloride 0.9% Flush) 10 ml IV PRN PRN PRN Reason: Flush Last Admin: 08/31/21 12:55 Dose: 10 ml Documented by: CHRIS Sodium Chloride (Sodium Chloride 0.9% Flush) 10 ml IV BID [facility] Last Admin: 09/01/21 10:43 Dose: 10 ml Documented by: Admin: 08/31/21 20:32 Dose: 10 ml Documented by: Admin: 08/31/21 08:59 Dose: 10 ml Documented by: CRUZ Spironolactone (Spironolactone 25 Mg Tablet) 25 mg PO DAILY [facility] Last Admin: 09/01/21 10:33 Dose: Not Given Documented by: Admin: 08/31/21 12:54 Dose: 25 mg Documented by: CHRIS Vital Signs Vital signs: Vital Signs - 8 hr 08/30/21 16:23 08/30/21 17:43 08/30/21 17:45 Temperature 97.9 F Pulse Rate 70 85 79 Respiratory Rate 20 26 H 33 H Blood Pressure 143/65 H 150/77 H Pulse Oximetry 98 96 08/30/21 18:00 08/30/21 18:30 08/30/21 19:03 Temperature Pulse Rate 69 72 101 H Respiratory Rate 19 41 H 47 H Blood Pressure 138/65 121/77 Pulse Oximetry 95 92 MDM - SOB/Dyspnea <Franklin Vázquez PA-C - Last Filed: 08/30/21 20:28> Lab Data Lab results narrative: NT proBNP elevated to 3410. PT INR supratherapeutic to 3.8 Result diagrams: 08/30/21 17:00 09/01/21 06:45 Labs: Lab Results 08/30/21 08/30/21 08/30/21 Range/Units 17:00 17:00 17:00 WBC 6.6 (4.5-11.0) X10^3/uL RBC 4.49 (4.0-5.2) X10^6/uL Hgb 12.1 (12.0-16.0) g/dL Hct 37.5 (36-46) % MCV 83.5 (80-100) fL MCH 27.0 (26-34) PG MCHC 32.4 (30-36) % RDW 16.5 H (11.6-14.8) % Plt Count 206 (150-400) X10^3/uL Neut % (Auto) 70.8 (50-75) % Lymph % (Auto) 16.7 L (25-40) % [place] % (Auto) 9.9 (3-14) % Eos % (Auto) 1.3 L (2-4) % Baso % (Auto) 1.3 (0-2) % Neut # (Auto) 4700 (8462-4172) /uL Lymph # (Auto) 1100 (9314-5663) /uL [place] # (Auto) 700 (0-900) /uL Eos # (Auto) 100 (0-450) /uL Baso # (Auto) 100 (0-100) /uL PT (10.1-12.7) SECONDS INR (0.9-1.3) Sodium 140 (137-145) mmol/L Potassium 4.5 (3.4-5.1) mmol/L Chloride 109 H (98-107) mmol/L Carbon Dioxide 20 L (22-32) mmol/L BUN 21 H (7-17) mg/dL Creatinine 1.08 H (0.52-1.04) mg/dL Estimated GFR 49.9 L (>60) mL/min BUN/Creatinine Ratio 19.4 (6-22) Glucose 110 (80-110) mg/dL Lactate 1.5 (0.7-2.1) mmol/L Calcium 9.6 (8.4-10.2) mg/dL Total Bilirubin 1.6 H (0.2-1.3) mg/dL AST 64 H (14-36) IU/L ALT 43 H (<35) IU/L Alkaline Phosphatase 104 (38-126) U/L Total Creatine Kinase (30-135) U/L CK-MB (CK-2) CK-MB (CK-2) Rel Index Troponin I (0.01-0.034) ng/mL NT-Pro-B Natriuret Pep 3410 H (<125) pg/mL Total Protein 7.8 (6.3-8.2) g/dL Albumin 4.1 (3.5-5.0) g/dL Globulin 3.7 (1.7-4.1) g/dL Albumin/Globulin Ratio 1.1 (1.0-2.8) Urine RBC (0-5/HPF) Urine WBC (0-5/HPF) Ur Squamous Epith Cells (0-5/HPF) Ur Transition Epith Cell (0-5/HPF) Urine Bacteria (None) Granular Casts (None) Ur Culture Indicated? SARS-CoV-2 (PCR) (Negative) 08/30/21 08/30/21 08/30/21 Range/Units 17:00 17:00 17:49 WBC (4.5-11.0) X10^3/uL RBC (4.0-5.2) X10^6/uL Hgb (12.0-16.0) g/dL Hct (36-46) % MCV (80-100) fL MCH (26-34) PG MCHC (30-36) % RDW (11.6-14.8) % Plt Count (150-400) X10^3/uL Neut % (Auto) (50-75) % Lymph % (Auto) (25-40) % [place] % (Auto) (3-14) % Eos % (Auto) (2-4) % Baso % (Auto) (0-2) % Neut # (Auto) (4671-3324) /uL Lymph # (Auto) (0663-5229) /uL [place] # (Auto) (0-900) /uL Eos # (Auto) (0-450) /uL Baso # (Auto) (0-100) /uL PT 43.4 H (10.1-12.7) SECONDS INR 3.8 H (0.9-1.3) Sodium (137-145) mmol/L Potassium (3.4-5.1) mmol/L Chloride (98-107) mmol/L Carbon Dioxide (22-32) mmol/L BUN (7-17) mg/dL Creatinine (0.52-1.04) mg/dL Estimated GFR (>60) mL/min BUN/Creatinine Ratio (6-22) Glucose (80-110) mg/dL Lactate (0.7-2.1) mmol/L Calcium (8.4-10.2) mg/dL Total Bilirubin (0.2-1.3) mg/dL AST (14-36) IU/L ALT (<35) IU/L Alkaline Phosphatase (38-126) U/L Total Creatine Kinase 63 (30-135) U/L CK-MB (CK-2) TNP CK-MB (CK-2) Rel Index TNP Troponin I < 0.012 (0.01-0.034) ng/mL NT-Pro-B Natriuret Pep (<125) pg/mL Total Protein (6.3-8.2) g/dL Albumin (3.5-5.0) g/dL Globulin (1.7-4.1) g/dL Albumin/Globulin Ratio (1.0-2.8) Urine RBC (0-5/HPF) Urine WBC (0-5/HPF) Ur Squamous Epith Cells (0-5/HPF) Ur Transition Epith Cell (0-5/HPF) Urine Bacteria (None) Granular Casts (None) Ur Culture Indicated? SARS-CoV-2 (PCR) Negative (Negative) 08/30/21 Range/Units 17:53 WBC (4.5-11.0) X10^3/uL RBC (4.0-5.2) X10^6/uL Hgb (12.0-16.0) g/dL Hct (36-46) % MCV (80-100) fL MCH (26-34) PG MCHC (30-36) % RDW (11.6-14.8) % Plt Count (150-400) X10^3/uL Neut % (Auto) (50-75) % Lymph % (Auto) (25-40) % [place] % (Auto) (3-14) % Eos % (Auto) (2-4) % Baso % (Auto) (0-2) % Neut # (Auto) (3116-2335) /uL Lymph # (Auto) (3753-6833) /uL [place] # (Auto) (0-900) /uL Eos # (Auto) (0-450) /uL Baso # (Auto) (0-100) /uL PT (10.1-12.7) SECONDS INR (0.9-1.3) Sodium (137-145) mmol/L Potassium (3.4-5.1) mmol/L Chloride (98-107) mmol/L Carbon Dioxide (22-32) mmol/L BUN (7-17) mg/dL Creatinine (0.52-1.04) mg/dL Estimated GFR (>60) mL/min BUN/Creatinine Ratio (6-22) Glucose (80-110) mg/dL Lactate (0.7-2.1) mmol/L Calcium (8.4-10.2) mg/dL Total Bilirubin (0.2-1.3) mg/dL AST (14-36) IU/L ALT (<35) IU/L Alkaline Phosphatase (38-126) U/L Total Creatine Kinase (30-135) U/L CK-MB (CK-2) CK-MB (CK-2) Rel Index Troponin I (0.01-0.034) ng/mL NT-Pro-B Natriuret Pep (<125) pg/mL Total Protein (6.3-8.2) g/dL Albumin (3.5-5.0) g/dL Globulin (1.7-4.1) g/dL Albumin/Globulin Ratio (1.0-2.8) Urine RBC None seen (0-5/HPF) Urine WBC 1-5/hpf (0-5/HPF) Ur Squamous Epith Cells 1-5 /hpf (0-5/HPF) Ur Transition Epith Cell 1-5/hpf (0-5/HPF) Urine Bacteria None seen (None) Granular Casts 1-5/lpf (None) Ur Culture Indicated? Cult not indicated SARS-CoV-2 (PCR) (Negative) Urine Dip Bedside Urine Glucose Negative Bedside Urine Bilirubin - Negative Bedside Urine Ketone - Negative Urine Specific [place] 1.025 Bedside Urine Occult Blood - Negative Bedside Urine pH 5.0 Bedside Urine Protein ++ 100 Bedside Urine Urobilinogen - Negative Bedside Urine Nitrite - Negative Bedside Urine Leukocytes - Negative Esterase Imaging Data Chest x-ray: Radiologist's Impression: PROCEDURE:? XR CHEST 2V ? INDICATIONS:? shortness of breath ? TECHNIQUE:? 2 views of the chest were acquired.? ? COMPARISON:? [facility], CR, XR CHEST 1V, 12/07/2020, 15:14. ? FINDINGS:? ? Surgical changes and devices:? None.? ? Lungs and pleura:? Mild bilateral right greater than left perihilar and basilar reticulonodular opacity.? No pleural effusions or pneumothorax.? ? Mediastinum:? Mediastinal contours are normal.? Heart size is enlarged. ? Bones and chest wall:? No suspicious bony abnormalities.? Soft tissues appear unremarkable.? ? IMPRESSION:? Mild atypical pneumonia. ? ? Dictated by: Marco Mansfield M.D. on 08/30/2021 at 16:45 ? ? Approved by: Marco Mansfield M.D. on 08/30/2021 at 16:46 ? CT scan - chest: Radiologist's Impression: PROCEDURE:? CT ANGIO CHEST PE PROTOCOL ? INDICATIONS:? SOB, prior saddle embolism ? TECHNIQUE:? After the administration of intravenous contrast, 2 mm thick sections acquired from the pulmonary apices to the posterior costophrenic angles.? 3-dimensional maximum intensity projection (MIP) coronal and sagittal reformats were then acquired through the thorax.? For radiation dose reduction, the following was used:? automated exposure control, adjustment of mA and/or kV according to patient size.? ? COMPARISON:? [facility], CT, CT ANGIO CHEST PE PROTOCOL, 12/07/2020, 16:33. ? FINDINGS:? Image quality:? Excellent.? ? Pulmonary arteries:? The patient previously had bilateral saddle emboli.? Pulmonary emboli in the right have resolved and pulmonary emboli on the left are significantly smaller with recanalization of the left upper lobe and lingula and with continued thrombosis of the left lower lobe pulmonary artery branches. ? Lungs and pleura:? Diffuse bilateral airspace opacities are seen consistent with mild pulmonary edema.? No pleural effusions or pneumothorax.? Central and peripheral airways are patent.? There is a small right pleural effusion ? Mediastinum:? Heart size is normal, without pericardial effusion.? No mediastinal or hilar adenopathy.? Thoracic aorta is normal in caliber and enhancement.? Esophagus is normal in caliber, without hiatal hernia.? ? Bones and chest wall:? No suspicious bony lesions.? Ribs and thoracic spine appear intact throughout.? Thyroid gland is normal.? Anasarca is noted in the upper abdomen soft tissues.? No axillary or supraclavicular adenopathy.? ? Abdomen:? Visualized upper abdominal solid organs appear normal in the early arterial phase of enhancement.? ? IMPRESSION:? 1. Significantly improved bilateral pulmonary emboli with residual thrombus only in the left lower lobe pulmonary arteries. 2. Small right pleural effusion. 3. Diffuse ground-glass opacities consistent with mild pulmonary edema. 4. Anasarca is noted? ? ? Dictated by: Enrique Ruvalcaba M.D. on 08/30/2021 at 19:16 ? ? Approved by: Enrique Ruvalcaba M.D. on 08/30/2021 at 19:22 ? ECG Data Interpretation: Atrial fibrillation, some ST T wave abnormalities in the inferior leads. MDM Narrative Medical decision making narrative: 70-year-old female with PMH afib, Saddle PE, deep venous insufficiency presents to the ED with worsening bilateral lower extremity edema, shortness of breath. Concern for PE versus ACS versus CHF exacerbation versus pneumonia. Will order labs, troponin, chest x-ray, EKG, NT proBNP. Will order CT PE to assess for PE. Will reassess. <Vivian Darby MD - Last Filed: 09/04/21 23:58> Lab Data Labs: Lab Results 08/30/21 08/30/21 08/30/21 Range/Units 17:00 17:00 17:00 WBC 6.6 (4.5-11.0) X10^3/uL RBC 4.49 (4.0-5.2) X10^6/uL Hgb 12.1 (12.0-16.0) g/dL Hct 37.5 (36-46) % MCV 83.5 (80-100) fL MCH 27.0 (26-34) PG MCHC 32.4 (30-36) % RDW 16.5 H (11.6-14.8) % Plt Count 206 (150-400) X10^3/uL Neut % (Auto) 70.8 (50-75) % Lymph % (Auto) 16.7 L (25-40) % [place] % (Auto) 9.9 (3-14) % Eos % (Auto) 1.3 L (2-4) % Baso % (Auto) 1.3 (0-2) % Neut # (Auto) 4700 (3951-8261) /uL Lymph # (Auto) 1100 (1306-4302) /uL [place] # (Auto) 700 (0-900) /uL Eos # (Auto) 100 (0-450) /uL Baso # (Auto) 100 (0-100) /uL PT (10.1-12.7) SECONDS INR (0.9-1.3) Sodium 140 (137-145) mmol/L Potassium 4.5 (3.4-5.1) mmol/L Chloride 109 H (98-107) mmol/L Carbon Dioxide 20 L (22-32) mmol/L BUN 21 H (7-17) mg/dL Creatinine 1.08 H (0.52-1.04) mg/dL Estimated GFR 49.9 L (>60) mL/min BUN/Creatinine Ratio 19.4 (6-22) Glucose 110 (80-110) mg/dL Lactate 1.5 (0.7-2.1) mmol/L Calcium 9.6 (8.4-10.2) mg/dL Total Bilirubin 1.6 H (0.2-1.3) mg/dL AST 64 H (14-36) IU/L ALT 43 H (<35) IU/L Alkaline Phosphatase 104 (38-126) U/L Total Creatine Kinase (30-135) U/L CK-MB (CK-2) CK-MB (CK-2) Rel Index Troponin I (0.01-0.034) ng/mL NT-Pro-B Natriuret Pep 3410 H (<125) pg/mL Total Protein 7.8 (6.3-8.2) g/dL Albumin 4.1 (3.5-5.0) g/dL Globulin 3.7 (1.7-4.1) g/dL Albumin/Globulin Ratio 1.1 (1.0-2.8) Urine RBC (0-5/HPF) Urine WBC (0-5/HPF) Ur Squamous Epith Cells (0-5/HPF) Ur Transition Epith Cell (0-5/HPF) Urine Bacteria (None) Granular Casts (None) Ur Culture Indicated? SARS-CoV-2 (PCR) (Negative) 08/30/21 08/30/21 08/30/21 Range/Units 17:00 17:00 17:49 WBC (4.5-11.0) X10^3/uL RBC (4.0-5.2) X10^6/uL Hgb (12.0-16.0) g/dL Hct (36-46) % MCV (80-100) fL MCH (26-34) PG MCHC (30-36) % RDW (11.6-14.8) % Plt Count (150-400) X10^3/uL Neut % (Auto) (50-75) % Lymph % (Auto) (25-40) % [place] % (Auto) (3-14) % Eos % (Auto) (2-4) % Baso % (Auto) (0-2) % Neut # (Auto) (8304-0053) /uL Lymph # (Auto) (9956-9054) /uL [place] # (Auto) (0-900) /uL Eos # (Auto) (0-450) /uL Baso # (Auto) (0-100) /uL PT 43.4 H (10.1-12.7) SECONDS INR 3.8 H (0.9-1.3) Sodium (137-145) mmol/L Potassium (3.4-5.1) mmol/L Chloride (98-107) mmol/L Carbon Dioxide (22-32) mmol/L BUN (7-17) mg/dL Creatinine (0.52-1.04) mg/dL Estimated GFR (>60) mL/min BUN/Creatinine Ratio (6-22) Glucose (80-110) mg/dL Lactate (0.7-2.1) mmol/L Calcium (8.4-10.2) mg/dL Total Bilirubin (0.2-1.3) mg/dL AST (14-36) IU/L ALT (<35) IU/L Alkaline Phosphatase (38-126) U/L Total Creatine Kinase 63 (30-135) U/L CK-MB (CK-2) TNP CK-MB (CK-2) Rel Index TNP Troponin I < 0.012 (0.01-0.034) ng/mL NT-Pro-B Natriuret Pep (<125) pg/mL Total Protein (6.3-8.2) g/dL Albumin (3.5-5.0) g/dL Globulin (1.7-4.1) g/dL Albumin/Globulin Ratio (1.0-2.8) Urine RBC (0-5/HPF) Urine WBC (0-5/HPF) Ur Squamous Epith Cells (0-5/HPF) Ur Transition Epith Cell (0-5/HPF) Urine Bacteria (None) Granular Casts (None) Ur Culture Indicated? SARS-CoV-2 (PCR) Negative (Negative) 08/30/21 Range/Units 17:53 WBC (4.5-11.0) X10^3/uL RBC (4.0-5.2) X10^6/uL Hgb (12.0-16.0) g/dL Hct (36-46) % MCV (80-100) fL MCH (26-34) PG MCHC (30-36) % RDW (11.6-14.8) % Plt Count (150-400) X10^3/uL Neut % (Auto) (50-75) % Lymph % (Auto) (25-40) % [place] % (Auto) (3-14) % Eos % (Auto) (2-4) % Baso % (Auto) (0-2) % Neut # (Auto) (9903-2138) /uL Lymph # (Auto) (2363-2399) /uL [place] # (Auto) (0-900) /uL Eos # (Auto) (0-450) /uL Baso # (Auto) (0-100) /uL PT (10.1-12.7) SECONDS INR (0.9-1.3) Sodium (137-145) mmol/L Potassium (3.4-5.1) mmol/L Chloride (98-107) mmol/L Carbon Dioxide (22-32) mmol/L BUN (7-17) mg/dL Creatinine (0.52-1.04) mg/dL Estimated GFR (>60) mL/min BUN/Creatinine Ratio (6-22) Glucose (80-110) mg/dL Lactate (0.7-2.1) mmol/L Calcium (8.4-10.2) mg/dL Total Bilirubin (0.2-1.3) mg/dL AST (14-36) IU/L ALT (<35) IU/L Alkaline Phosphatase (38-126) U/L Total Creatine Kinase (30-135) U/L CK-MB (CK-2) CK-MB (CK-2) Rel Index Troponin I (0.01-0.034) ng/mL NT-Pro-B Natriuret Pep (<125) pg/mL Total Protein (6.3-8.2) g/dL Albumin (3.5-5.0) g/dL Globulin (1.7-4.1) g/dL Albumin/Globulin Ratio (1.0-2.8) Urine RBC None seen (0-5/HPF) Urine WBC 1-5/hpf (0-5/HPF) Ur Squamous Epith Cells 1-5 /hpf (0-5/HPF) Ur Transition Epith Cell 1-5/hpf (0-5/HPF) Urine Bacteria None seen (None) Granular Casts 1-5/lpf (None) Ur Culture Indicated? Cult not indicated SARS-CoV-2 (PCR) (Negative) Urine Dip Bedside Urine Glucose Negative Bedside Urine Bilirubin - Negative Bedside Urine Ketone - Negative Urine Specific [place] 1.025 Bedside Urine Occult Blood - Negative Bedside Urine pH 5.0 Bedside Urine Protein ++ 100 Bedside Urine Urobilinogen - Negative Bedside Urine Nitrite - Negative Bedside Urine Leukocytes - Negative Esterase Discharge Plan Departure Patient Disposition: Admitted as Observation Clinical Impression: Acute exacerbation of CHF (congestive heart failure) Admit Date/Time: 08/30/21 19:57 Admit Provider: Thanh Judd <Vivian Darby MD - Last Filed: 09/04/21 23:58> Cosign ED Attending Cosignature Attestation: I was immediately available in the department for consultation throughout this patient's visit. I agree with documentation as above. Vivian Darby MD
[2021-08-30 21:07] LABS: Troponin I < 0.012 ng/mL (0.01-0.034)
[2021-08-30 21:19] LABS: Bacteria Urine None Seen; Culture Indicated Urine Cult Not Indicated; Granular Casts Urine 1-5/LPF; RBC Urine None Seen (0-5/HPF); Squamous Epithelial Cell Urine 1-5 /HPF (0-5/HPF); Transitional Epi Cells Urine 1-5/HPF (0-5/HPF); WBC Urine 1-5/HPF (0-5/HPF)
--- NOTE | 2021-08-30 22:28 | PC.ADMIT ---
[email or web address] Admission Note: Patient arrived from ED at 2049. Oriented to room. No reports of pain, nausea, or difficulty breathing. Resting comfortably. Continuing to wait for provider visit and orders. The patient,Le Tang,70 y/o, was given written information regarding hospital policies, unit procedures and contact persons. Patient's smoking status: Never smoker. Vital Signs - 8 hr 08/30/21 16:23 08/30/21 17:43 08/30/21 17:45 Temperature 97.9 F Pulse Rate 70 85 79 Respiratory Rate 20 26 H 33 H Blood Pressure 143/65 H 150/77 H Pulse Oximetry 98 96 08/30/21 18:00 08/30/21 18:30 08/30/21 19:03 Temperature Pulse Rate 69 72 101 H Respiratory Rate 19 41 H 47 H Blood Pressure 138/65 121/77 Pulse Oximetry 95 92 08/30/21 19:30 08/30/21 20:00 08/30/21 20:30 Temperature Pulse Rate 68 68 117 H Respiratory Rate 17 15 Blood Pressure Pulse Oximetry 99 97 89 L
[2021-08-31] VITALS (7 sets, daily range): BP systolic 115–135; BP diastolic 47–70; PULSE 63–77; RESP 16–22; TEMP 36.3–36.8; O2SAT 92–96
--- NOTE | 2021-08-31 00:18 | P.HP_ITS ---
History of Present Illness History of Present Illness Date Patient Seen: 08/31/21 Time Patient Seen: 23:35 Chief complaint: Legs swelling, HX pulmonary embolism November, Narrative: 70-year-old female with a history of chronic persistent atrial fibrillation, hypertension, history of saddle emboli, chronic venous stasis changes, who was in her usual state of health until several weeks ago. Patient has noted increasing swelling of her lower extremities. She has weeping of both her right and her left lower extremity. She has also had increasing shortness of breath. This is both at rest and with activity. She has a a bilevel home and is noted she is needed to stay up stairs because she has difficulty going up and down the stairs due to her breathing. The patient also notes she has been sleeping at an incline recently. She gets winded with minimal activity. She has had no fever but does report some chills. She has had no cough. She has been vaccinated for COVID-19. She denies any headache blurred vision or double vision no nausea vomiting or diarrhea no dysuria hematuria or pyuria. Patient was evaluated in the emergency room and found to have a proBNP elevated at 34 10, CT angio confirms as significantly improved bilateral pulmonary emboli, with only residual emboli in the left lower lobe, she has a small left pleural effusion, diffuse ground-glass opacities consistent with pulmonary edema, anasarca is noted. Patient is admitted to the hospital for acute decompensated congestive heart failure Patient History Medical History (Updated 08/31/21 @ 00:29 by Suha Chisholm MD) Chronic venous stasis dermatitis DVT (deep venous thrombosis) Hypertension Longstanding persistent atrial fibrillation Surgical History (Updated 08/31/21 @ 00:30 by Suha Chisholm MD) History of embolectomy Family & Social History Family History (Updated 08/31/21 @ 00:30 by Suha Chisholm MD) Father Advanced cirrhosis of liver Social History: household members none Prior Living Arrangements House Safety & Behavioral: Feels Safe in Current Yes Environment Tobacco & Substance use: Smoking Status Never smoker alcohol intake frequency a few times a month Substance Use Type does not use Meds Home Medications and Allergies Home Medications Medication Instructions Recorded Confirmed Type amlodipine 10 mg tablet See Rx Instructions .ROUTE .COMPLEX 08/30/21 08/30/21 History lisinopril 20 mg tablet See Rx Instructions .ROUTE .COMPLEX 08/30/21 08/30/21 History metoprolol succinate 100 mg See Rx Instructions .ROUTE .COMPLEX 08/30/21 08/30/21 History tablet,extended release 24 hr rivaroxaban 20 mg tablet (Xarelto) See Rx Instructions .ROUTE .COMPLEX 08/30/21 08/30/21 History spironolactone 25 mg tablet See Rx Instructions .ROUTE .COMPLEX 08/30/21 08/30/21 History Allergies Allergy/AdvReac Type Severity Reaction Status Date / Time No Known Drug Allergies Allergy Verified 08/30/21 16:27 Review of Systems Review of Systems Narrative: 10 point review of systems is negative except as above Exam Vital Signs (past 8 hours): - 08/30/21 16:23 08/30/21 17:43 08/30/21 17:45 Temperature 97.9 F Pulse Rate 70 85 79 Respiratory Rate 20 26 H 33 H Blood Pressure 143/65 H 150/77 H Pulse Oximetry 98 96 08/30/21 18:00 08/30/21 18:30 08/30/21 19:03 Temperature Pulse Rate 69 72 101 H Respiratory Rate 19 41 H 47 H Blood Pressure 138/65 121/77 Pulse Oximetry 95 92 08/30/21 19:30 08/30/21 20:00 08/30/21 20:30 Temperature Pulse Rate 68 68 117 H Respiratory Rate 17 15 Blood Pressure Pulse Oximetry 99 97 89 L Oxygen Delivery Method Room Air Narrative Exam Narrative: Pleasant obese female lying in bed in no obvious distress [facility] Other: HEENT: Normocephalic atraumatic, extraocular muscles are intact, oropharynx is clear Eyes Other: Sclerae anicteric Neck Other: Neck is supple without adenopathy, JVD to the angle of the jaws noted Resp Other: Lungs: End-expiratory wheezing Cardio Other: Cardiac exam: Irregularly irregular normal S1-S2 GI Other: Abdomen: Soft nondistended nontender without hepatosplenomegaly Skin Other: Back reveals a 7 x 5 cm open basal cell carcinoma erythematous without bleeding Neuro Other: Nonfocal Extrem Other: Patient has weeping of both lower extremities, she has chronic venous stasis changes of the right lower extremity, she has significant edema of the left, Psych Other: Normal thought content and thought processes, mentation is within normal limits, mood and affect is appropriate Objective Labs Result Diagrams: 08/30/21 17:00 08/30/21 17:00 Labs: Laboratory Results - last 24 hr 08/30/21 08/30/21 08/30/21 17:00 17:00 17:00 WBC 6.6 RBC 4.49 Hgb 12.1 Hct 37.5 MCV 83.5 MCH 27.0 MCHC 32.4 RDW 16.5 H Plt Count 206 Neut % (Auto) 70.8 Lymph % (Auto) 16.7 L [place] % (Auto) 9.9 Eos % (Auto) 1.3 L Baso % (Auto) 1.3 Neut # (Auto) 4700 Lymph # (Auto) 1100 [place] # (Auto) 700 Eos # (Auto) 100 Baso # (Auto) 100 PT INR Sodium 140 Potassium 4.5 Chloride 109 H Carbon Dioxide 20 L BUN 21 H Creatinine 1.08 H Estimated GFR 49.9 L BUN/Creatinine Ratio 19.4 Glucose 110 Lactate 1.5 Calcium 9.6 Total Bilirubin 1.6 H AST 64 H ALT 43 H Alkaline Phosphatase 104 Total Creatine Kinase CK-MB (CK-2) CK-MB (CK-2) Rel Index Troponin I NT-Pro-B Natriuret Pep 3410 H Total Protein 7.8 Albumin 4.1 Globulin 3.7 Albumin/Globulin Ratio 1.1 Urine RBC Urine WBC Ur Squamous Epith Cells Ur Transition Epith Cell Urine Bacteria Granular Casts Ur Culture Indicated? SARS-CoV-2 (PCR) 08/30/21 08/30/21 08/30/21 17:00 17:00 17:49 WBC RBC Hgb Hct MCV MCH MCHC RDW Plt Count Neut % (Auto) Lymph % (Auto) [place] % (Auto) Eos % (Auto) Baso % (Auto) Neut # (Auto) Lymph # (Auto) [place] # (Auto) Eos # (Auto) Baso # (Auto) PT 43.4 H INR 3.8 H Sodium Potassium Chloride Carbon Dioxide BUN Creatinine Estimated GFR BUN/Creatinine Ratio Glucose Lactate Calcium Total Bilirubin AST ALT Alkaline Phosphatase Total Creatine Kinase 63 CK-MB (CK-2) TNP CK-MB (CK-2) Rel Index TNP Troponin I < 0.012 NT-Pro-B Natriuret Pep Total Protein Albumin Globulin Albumin/Globulin Ratio Urine RBC Urine WBC Ur Squamous Epith Cells Ur Transition Epith Cell Urine Bacteria Granular Casts Ur Culture Indicated? SARS-CoV-2 (PCR) Negative 08/30/21 08/30/21 17:53 20:33 WBC RBC Hgb Hct MCV MCH MCHC RDW Plt Count Neut % (Auto) Lymph % (Auto) [place] % (Auto) Eos % (Auto) Baso % (Auto) Neut # (Auto) Lymph # (Auto) [place] # (Auto) Eos # (Auto) Baso # (Auto) PT INR Sodium Potassium Chloride Carbon Dioxide BUN Creatinine Estimated GFR BUN/Creatinine Ratio Glucose Lactate Calcium Total Bilirubin AST ALT Alkaline Phosphatase Total Creatine Kinase CK-MB (CK-2) CK-MB (CK-2) Rel Index Troponin I < 0.012 NT-Pro-B Natriuret Pep Total Protein Albumin Globulin Albumin/Globulin Ratio Urine RBC None seen Urine WBC 1-5/hpf Ur Squamous Epith Cells 1-5 /hpf Ur Transition Epith Cell 1-5/hpf Urine Bacteria None seen Granular Casts 1-5/lpf Ur Culture Indicated? Cult not indicated SARS-CoV-2 (PCR) Assessment & Plan Assessment & Plan narrative: Impression 70-year-old female with a history of chronic persistent atrial fibrillation, remote history of a saddle pulmonary emboli, hypertension who presents for acute decompensated congestive heart failure * Patient presents with lower extremity edema, orthopnea, shortness of breath, and an elevated proBNP of 34 10 * Atrial fibrillation likely a risk factor for her heart failure * Will continue Lasix 40 mg IV twice daily * Will obtain cardiac echo to evaluate LV function * Patient will be placed on a heart healthy diet * Will consult dietary to assist with dietary management Chronic persistent atrial fibrillation * Will continue metoprolol, and Xarelto Hypertension * Continue amlodipine and lisinopril at this time * Patient is concerned that the amlodipine may be making her swelling worse * Will continue spironolactone as well History of saddle emboli * CT angio negative for PE, confirms ground-glass opacities consistent with pulmonary edema * Continue Xarelto Morbid obesity * Dietary consultation Patient indicates she is a full code will note that her record accordingly Patient will be admitted under observation I have utilized all available resources to update review and confirm the patient's current medications Time Spent With Patient Critical Care time: I spent a total of [] minutes of critical care time on this patient's care today; this time is exclusive of procedural time.
--- NOTE | 2021-08-31 00:18 | DI.ECHO.S_ITS ---
[facility]---------+ [facility] +---------+ : : [address] [place] [address] : : : : [id number] : : : : Phone: [phone]---------+ Echocardiogram Report + + :Name: TORO ARENAS Study Date: 08/31/2021 Height: 67 in : :[facility] ReadingLocation: Weight: 290 lb : : Gender: Female BSA: 2.4 m2 : :: 1950 Age: 70 yrs BP: 105/61 mmHg: :Reason For Study: Edema, Hx pulmonary embolism, SOB : : Performed By: Jim Barajas : :Referring: MATT ROBERT : + + Interpretation Summary Afib with controlled rate. Normal LV size and wall thickness; normal wall motion and LV systolic function. EF is 60-65%. Moderate biatrial enlargement; mild RV enlargement with mildly reduced RV function. Estimated PA systolic pressure is 45 mm Hg assuming RA pressure of 15 mm Hg. No significant valvular abnormalities. No prior study available for comparison. Procedure: A two-dimensional transthoracic echocardiogram with color flow and Doppler was performed. The study quality was technically adequate. There is no prior echocardiogram noted for this patient. The patient was in normal sinus rhythm during the exam. The patient had occasional PVCs during the exam. Left Ventricle: The left ventricle is normal in size. There is borderline asymmetric left ventricular hypertrophy. The ejection fraction is estimated to be 60-65%. The interventricular septum is flattened, consistent with a right ventricular pressure/volume condition. Right Ventricle: The right ventricle is mildly dilated. Right ventricular systolic function is mildly reduced. Atria: The left atrium is moderately dilated. The right atrium is moderately dilated. There is no Doppler evidence for an interatrial shunt. The atrial septum is aneurysmal. Mitral Valve: The mitral valve leaflets appear borderline thickened, but open well. There is mild mitral regurgitation. Aortic Valve: The aortic valve is trileaflet. The aortic valve opens well. No aortic regurgitation is present. Tricuspid Valve: The tricuspid valve is normal. There is moderate tricuspid regurgitation. The right ventricular systolic pressure is estimated to be at least 45 mmHg based on an estimated right atrial pressure of 15 mm Hg. Pulmonic Valve: The pulmonic valve leaflets are thin and pliable; valve motion is normal. There is a trace or physiologic amount of pulmonic regurgitation. Great Vessels: The aortic root is normal size. The ascending aorta is normal in size. The aortic arch is mildly enlarged. The IVC is dilated (diameter is greater than 2.1 cm) and it collapses less than 50% with a sniff. This suggests a high right atrial pressure of 15 mm Hg. Pericardium/ Pleura There is no pericardial effusion. There is an anterior echo-free space consistent with a fat pad. There is no pleural effusion. MMode/2D Measurements & Calculations LVIDd: 4.9 cm LVOT diam: 1.7 cm LVIDs: 3.4 cm Ao root diam: 2.6 cm FS: 30.8 % asc Aorta Diam: 3.5 cm IVSd: 0.94 cm Ao Arch Diam (Prox Trans): 3.8 cm LVPWd: 1.2 cm LV davidson. diameter/BSA (cm/m^2): 2.1 LV sys. diameter/BSA (cm/m^2): 1.4 LA A2 area: 29.9 cm2 RA long axis: 6.9 cm LA A4 area: 31.3 cm2 RA area: 27.2 cm2 LA length (vol): 8.0 cm RA vol: 91.4 ml LA vol: 99.6 ml RA : 38.6 ml/m2 LA vol index: 42.1 ml/m2 IVC diam: 2.9 cm TAPSE: 1.5 cm Doppler Measurements & Calculations Ao V2 max: 157.9 cm/sec LVOT Max Maurisio: 108.7 cm/sec Ao V2 mean: 110.7 cm/sec LV V1 max P.7 mmHg Ao max P.0 mmHg LV V1 VTI: 26.2 cm Ao mean P.4 mmHg MAXWELL(I,D): 1.8 cm2 Ao V2 VTI: 34.7 cm MAXWELL(V,D): 1.6 cm2 sev ratio: 0.75 MAXWELL indexed to BSA (cm^2/m^2): 0.75 MV E max maurisio: 160.7 cm/sec TR max maurisio: 275.3 cm/sec MV A max maurisio: 41.7 cm/sec TR max P.3 mmHg MV E/A: 3.9 PA V2 max: 74.0 cm/sec Med Peak E' Maurisio: 9.5 cm/sec PA V2 mean: 62.3 cm/sec E/E' med: 16.9 PA mean P.6 mmHg Lat Peak E' Maurisio: 14.0 cm/sec PA pr(Accel): 46.5 mmHg E/E' lat: 11.5 E/e' average: 14.2 MV dec time: 0.20 sec MR VTI: 169.2 cm SV(INDRA): 62.1 ml Electronically signed by: Fidelia Encarnacion M.D. on Reading Physician:08/31/2021 05:06 PM
[2021-08-31] MEDS: METOPROLOL IR 50 MG TABLET 100 MG PO (01:05)
[2021-08-31] MEDS: lisinopriL 20 MG TABLET PO ×2 (01:06→08:59)
[2021-08-31] MEDS: POTASSIUM CHLORIDE 20 MEQ TAB PO ×2 (07:52→18:28)
[2021-08-31] MEDS: RIVAROXABAN 10 MG TABLET 20 MG PO (07:52)
[2021-08-31] MEDS: AMLODIPINE 5 MG TABLET 10 MG PO (08:58)
[2021-08-31] MEDS: METOPROLOL ER 50 MG TABLET 100 MG PO (08:58)
[2021-08-31] MEDS: SODIUM CHLORIDE 0.9% FLUSH 10 ML IV ×3 (08:59→20:32)
--- NOTE | 2021-08-31 10:00 | PT.IIE ---
Addendum entered and electronically signed by Tari Crane PT 08/31/21 13:47: Next tx plan: up/down platform step using quad cane/ONLINE USER EXPERIENCE STRATEGIST Original Note: Medical History (Last Updated 08/31/21 @ 00:29 by Suha Chisholm MD) Chronic venous stasis dermatitis DVT (deep venous thrombosis) Hypertension Longstanding persistent atrial fibrillation Physical Therapy Inpatient Evaluation/Re-Eval M1 PT/OT-IP Prior Functional Status Start: 08/31/21 12:44 Freq: NEEDED Status: Active Protocol: Document 08/31/21 10:00 AB (Rec: 08/31/21 13:05 AB [email or web address]) Medical Review Prior Functional Status Medical History Reviewed Yes Communication able to make needs known Mobility and Gait pt stated that she is independent with all mobilities and ambulation without AD Social History Household Members none Living Arrangements House Number of Floors (Floors) Two Floors Number of Stairs To Enter/Railing? 2 steps to enter without rails has R side corner wall that pt holds on to 12 steps R rail + L wall to bedroom level Home Environment Standard Height Toilet,Walk in Shower Additional Social History Comment has walking sticks M2 PT-IP Current Condition Start: 08/31/21 12:44 Freq: NEEDED Status: Active Protocol: Document 08/31/21 10:00 AB (Rec: 08/31/21 [facility] Current Condition Current Condition Evaluation Date 08/31/21 Treatment Diagnosis CHF; difficulty in walking Onset Date 08/30/21 M3 PT-IP Subjective Start: 08/31/21 12:44 Freq: NEEDED Status: Active Protocol: Document 08/31/21 10:00 AB (Rec: 08/31/21 13:05 [facility] Subjective Physical Therapy Visit Type Type Initial Evaluation Visit Start Time 10:00 Visit Stop Time 10:40 Total Visit Minutes 40 Number of TRAY WORKER Visits 0 Physical Therapy Visit Comments Patient Comments agreeable to do PT M4 PT-IP Mobility and Gait Start: 08/31/21 12:44 Freq: NEEDED Status: Active Protocol: Document 08/31/21 10:00 AB (Rec: 08/31/21 13:05 AB [email or web address]) PT-Bed Mobility Assessment Supine to Sit Supine to Sit Standby Assistance Sit to Supine Sit to Supine Standby Assistance PT-Transfer Assessment Sit to and From Stand Sit to and from Stand Standby Assistance Equipment Transfer Assistive Device None Orthotic/Prosthetic Devices or Brace: No Transfers Transfer Destination Bed,Chair Transfer Technique ambulated Transfer Ability Level of Assist Standby Assistance Comments Mobility Comments pt sitting on chair. completed sit to stand SBA and ambulated in room SBA without AD. presents with antalgic gait with increase forward trunk flexion. stated that due to BLE swelling, B thighs run onto each other and hard to stand upright. completed sit<>supine SBA. ambulated without AD ~ 100 ft SBA. completed up/down steps using B rails SBA. increase LE circumduction to clear LE up to step due to decrease ROM on B knees and hips. completed up/down platform step using R corner wall max A . educated on use of SPC. pt stated that SPC is too wobbly for her and feels like she cannot use it for stairs but agreed to try with PT. PT completed up/down platform steps again using R corner wall + SPC max A and again with SPC + ONLINE USER EXPERIENCE STRATEGIST max A and cues. pt ambulated back to her room SBA. set up on chair. educated pt on safety and agreed to try steps again with use of quad cane next tx session. call light and table placed next to pt. Gait Assessment Gait Gait Assistance Required: Standby Assistance Able to Maintain Weight Bearing Status Yes During Gait Assistive Devices Assistive Device None Orthotic/Prosthetic Devices or Brace: No Gait Deviations General Gait Pattern Antalgic,Decreased Stride Length,Decreased Feet Clearance,Flexed Trunk Factors Limiting Gait Function Factors Limiting Gait Function Decreased Activity Tolerance, Decreased Strength,Limited Range of Motion Comments Gait Comments pls refer to mobility section for details Stair Climbing Assessment Evaluation Level of Assist On Stairs Maximal Assistance,1 Person Assistance Devices Stair Climbing Assistive Devices Left Railing,Right Railing Technique/Endurance Stair Climbing Technique Step to Step Number of Steps Climbed 3 Query Text: Stair Climbing Set # Repetitions (reps) 2 Comments Stair Climbing Comments pls refer to mobility section for details PT-Balance Assessment Sitting Balance and Reactions Static Sitting Balance Ability Good Dynamic Sitting Balance Ability Good Standing Balance and Reactions Static Standing Balance Ability Good Dynamic Standing Balance Ability Good M5 PT-IP Objective Assessments Start: 08/31/21 12:44 Freq: NEEDED Status: Active Protocol: Document 08/31/21 10:00 AB (Rec: 12/07/21 13:05 AB [id number]) Orientation Orientation/Cognition Level of Alertness Alert Orientation Name,Place Language Function Ability No Deficits Noted Safety Awareness Understands Safety Issues, Decreased Safety Awareness Memory Description No Deficits Noted Gross Range of Motion Lower Extremity ROM Impairments pt with difficulty with hip/ knee flexion due to LE swelling/increase girth Strength Lower Extremity Strength Hip 4-/5 Knee 4-/5 Coordination Assessment Gross Coordination Gross Coordination WNL Muscle Tone Muscle Tone WNL Yes M6 PT-IP Treatment Start: 08/31/21 12:44 Freq: NEEDED Status: Active Protocol: Document 08/31/21 10:00 AB (Rec: 08/31/21 13:05 AB [email or web address]) Physical Therapy Treatment Education Education Provided Safety M7 PT-IP Assessment and Plan Start: 08/31/21 12:44 Freq: NEEDED Status: Active Protocol: Document 08/31/21 10:00 AB (Rec: 08/31/21 13:05 AB [email or web address]) PT Summary Assessment and Plan Potential Rehabilitation Potential Good Status of Condition at Evaluation Stable Summary Impairments Pain,ROM,Strength,Balance, Coordination,Sensation,Tone, Cognition,Bed Mobility, Transfers,Gait,Activity Tolerance Assessment Summary pt requiring SBA with bed mobility, transfers and ambulation but requires max A for stair climbing. will assess stair climbing using quad cane next tx session. will conduct caregiver training when appropriate. will continue to assess progress. Goals Bed Mobility Goal Independent Transfer Goal Independent Gait Goal Independent Gait Distance 200 Other Goals up/down platform step using AD /ONLINE USER EXPERIENCE STRATEGIST or without AD CGA to SBA Days to Meet Goals 5 Frequency of Treatment Frequency Of Treatment Once a Day Treatment Plan Physical Therapy Treatment Plan Bed Mobility Training,Transfer Training,Gait Training, Therapeutic Exercise,Balance Retraining,Discharge Planning, Hot or Cold Pack,Neuromuscular Re-ed,Coordination Retraining Recommendations To Nursing Amount of Assist Needed Standby Assistance Discharge Recommendations PT Discharge Recommendations Home with Assistance Transportation Needs at Discharge Private Vehicle
--- NOTE | 2021-08-31 10:39 | CM.DANOTE ---
DCP: Case received, EMR reviewed and met with patient. Introduced self and role. Was able to obtain information regarding patient's baseline activity status at home prior to hospitalization, as well as her current living situation. DCP assessment completed with information currently available. Patient is a 70 year old female who admitted yesterday evening to the care of the hospitalist team. PCP: Dr. Judd. Payer: confirmed: Medicare/[employer]. Patient came to the hospital via private vehicle for increased shortness of breath, and increased lower extremity edema. Patient indicated, she called 911 first, the paramedics checked out, and stated she should be stable enough to drive herself here. She was hoping to save the cost of transportation. Patient is here for diuresis, some possible pneumonia. Patient has history of a-fib, deep venous insufficiency, and saddle emboli. Met with patient in her room. She was ambulatory in her room, alert and oriented. She was having GENERAL MANAGER IN TRAINING apply her compression stockings, she had a bandage to her right leg. Patient confirmed that she resides alone [place], her son also lives in [place] as well. She is independent at her baseline, drives. She is able to apply her own stockings. She indicated that she has gone to the wound clinic recently. She is not opposed to home health nursing to come out and evaluate her wounds and edema. She is aware that she has to be homebound. P: DCP to continue to follow for needs. She will continue with diuresis, and home when stable. Home Health may be an option as well. If this is the case, will need face to face signed by her provider. Rosie Sparks RN/Cardiovascular Physician Assistant Discharge Planning/Care Management CM Discharge Assessment Start: 08/31/21 10:37 Freq: Status: Active Protocol: Document 08/31/21 10:37 (Rec: 08/31/21 10:39 [id number]) Discharge Planning Assessment Assigned Stationary Engineer Refrigeration Rosie Sparks RN/Cardiovascular Physician Assistant Advance Directives? No History Provided By Patient,Medical Record Prior Living Arrangements House Household Members none Type of transporation used prior to Drives own vehicle admit Independent with ADL's Yes Is patient alert and oriented? Yes Caregiver for Another No Barriers to Discharge No Discharge Plan Home Transportation Arrangement Son Referrals Initiated Other Additional Comment May consider home health for wound, she is has gone to the wound clinic as well. If patient plan is home with home health No : Has signed face to face form been completed? Whiteboard Updated in Patient Room with Yes name and ext. # of Stationary Engineer Refrigeration Review Status In Process Next Review Type Continued Stay Review
--- NOTE | 2021-08-31 11:45 | OT.IP.EVAL ---
Past Medical History (Last Updated 08/31/21 @ 00:29 by Suha Chisholm MD) Chronic venous stasis dermatitis DVT (deep venous thrombosis) History of embolectomy Hypertension Longstanding persistent atrial fibrillation Surgical History (Last Updated 08/31/21 @ 00:30 by Suha Chisholm MD) History of embolectomy Occupational Therapy Inpatient Evaluation/Re-Eval M1 PT/OT-IP Prior Functional Status Start: 08/31/21 12:44 Freq: NEEDED Status: Active Protocol: Document 08/31/21 11:15 [facility] (Rec: 08/31/21 14:38 [facility] [id number]) Medical Review Prior Functional Status Medical History Reviewed Yes Communication able to make needs known Mobility and Gait pt stated that she is independent with all mobilities and ambulation without AD Activities of Daily Living and IADL's Pt states prior to her legs getting really swollen able to do all her ADL including her compression stocking and IADl needs. Social History Household Members none Living Arrangements House Number of Floors (Floors) Two Floors Number of Stairs To Enter/Railing? 2 steps to enter without rails has R side corner wall that pt holds on to 12 steps R rail + L wall to bedroom level Home Environment Standard Height Toilet,Walk in Shower Additional Social History Comment has walking sticks and crutches M2 OT-IP Current Condition Start: 08/31/21 14:24 Freq: Status: Active Protocol: Document 08/31/21 11:15 [facility] (Rec: 08/31/21 14:38 [facility] [id number]) Occupational Therapy Current Condition Current Condition Evaluation Date 08/31/21 Treatment Diagnosis Acute decompensated CHF Diagnosis Onset Date 08/31/21 M3 OT- IP Subjective and Pain Start: 08/31/21 14:24 Freq: Status: Active Protocol: Document 08/31/21 11:15 [facility] (Rec: 08/31/21 14:38 [facility] [id number]) OT- Subjective Occupational Therapy Visit Type Type Initial Evaluation Visit Start Time 11:15 Visit Stop Time 11:45 Total Visit Minutes 30 Occupational Therapy Visit Comments Patient Comments Pt agreed to work with OT but not sure if OT needed. Patient/Caregiver Goals TO go home. OT Pain Assessment Pain When Pain Assessed At Rest Pain Present Pain Present Denied Pain M4 OT- IP ADL's Start: 08/31/21 14:24 Freq: Status: Active Protocol: Document 08/31/21 11:15 [facility] (Rec: 08/31/21 14:38 [facility] [id number]) OT [id number] General Evaluation Self-Feeding Ability Independent OT ADL-Grooming Comments OT Grooming Comments Pt states did on her own earlier. OT ADL-Dressing Comments OT Dressing Comments Pt now needing assist for her compression stockings. Pt states has a better set-up at home to be able to get a better angle to help put on her stockings. OT ADL-Toileting Comments OT Toileting Comments Pt states did so earlier on her own. Pt insists that she can reach and clean herself appropriately. Able to go over information of toilet paper aid if needed. OT ADL-Bathing Comments OT Bathing Comments Pt states just sponges off at home lately. Suggested best to have a shower chair at home for safety and grab bars. M5 OT- IP IADL's Start: 08/31/21 14:24 Freq: Status: Active Protocol: Document 08/31/21 11:15 [facility] (Rec: 08/31/21 14:38 [facility] [id number]) OT-Instrumental Activities of Daily Living Home Safety Awareness Home Safety Comments Pt insists that she will be fine after her swelling of her legs goes down. Able to go over energy conservation information with the pt. Medication Management Medication Management No Deficits Identified Money Management Money Management No Deficits Identified Meal Preparation Meal Preparation Comments Pt states does on her won but slowly. Pt may benefit from a cart or 4ww to move objects around. Environmental Permitting Specialist Environmental Permitting Specialist Comments Pt states does on her won but slowly. Pt may benefit from a cart or 4ww to move objects around. M6 OT- IP Functional Cognition Start: 08/31/21 14:24 Freq: Status: Active Protocol: Document 08/31/21 11:15 [facility] (Rec: 08/31/21 14:38 [facility] [id number]) Cognitive Factors Limiting Selfcare Function Cognitive Ability Level of Alertness Alert Patient Orientation Name,Age,Birthday,Month,Date, Year,Day of Week,Place, Situation Attention Span Ability Capable of Focused Attention, Capable of Sustained Attention Ability to Follow Commands Able to Follow Multi-Step Commands Cognitive Comments Cognitive Assessment Comments Pt appears at baseline for her cognitive needs, continue to assess as needed. Pt able to states that she knows it would be best for her to move to a one level house. Also educated pt on possible move to prison community if able so may not have to move again down the road. OT- Vision and Hearing OT- Hearing Assessment OT- Hearing Assessment WFL OT- Vision Assessment Visual Acuity Glasses All The Time M7 OT- IP Mobility and Balance Start: 08/31/21 14:24 Freq: Status: Active Protocol: Document 08/31/21 11:15 [facility] (Rec: 08/31/21 14:38 [facility] [id number]) OT-Transfer Assessment Sit to and From Stand Sit to and from Stand Standby Assistance Transfers Transfer Ability Standby Assistance Technique Transfer Destination Chair Transfer Technique Stand Step Pivot Comments Mobility Comments Distant SBA while standing from the recliner and walking in the room. Suggested to pt to call for assist to help get into and out of the chair as the recliner is difficulty to adjust the legs without assist . OT- Balance Assessment Sitting Balance and Reactions Static Sitting Balance Ability Good Dynamic Sitting Balance Ability Good Standing Balance and Reactions Static Standing Balance Ability Good Dynamic Standing Balance Ability Good M8 OT- IP Objective Assessments Start: 08/31/21 14:24 Freq: Status: Active Protocol: Document 08/31/21 11:15 [facility] (Rec: 08/31/21 14:38 [facility] [id number]) OT Gross Range of Motion Upper Extremity Range of Motion Assessment Within Functional Limits OT Strength Upper Extremity Strength Assessment Within Functional Limits M9 OT- IP Assessment and Plan Start: 08/31/21 14:24 Freq: Status: Active Protocol: Document 08/31/21 11:15 [facility] (Rec: 08/31/21 14:38 [facility] [id number]) OT Summary Assessment and Plan Potential Rehabilitation Potential Good Analytic Complexity at Evaluation Low Summary OT Impairments Dressing,Toileting,Bathing, Shower Transfers,Activity Tolerance Progress Towards Goals Progressing Toward Goals Assessment Summary Pt low complexity and main barriers are steps at home, being able to do her compression stockings and IADl needs. Pt feels confident able to care for herself once her swelling in her legs have gone down. Goals Dressing Goal Independent Toileting Goal Independent Bathing Goal Independent Toilet Transfer Goal Independent Shower Transfer Goal Independent Patient/Caregiver Education Goal Demonstrate Energy Conservation and Pacing Days to Meet Goals 5 Frequency of Treatment Frequency Of Treatment Once a Day Treatment Plan OT Treatment Plan ADL Training,Functional Mobility,Patient/Family Education,Discharge Planning Other Treatment Recommendations and Next shower Treatment Focus Discharge Recommendations OT Discharge Recommendations Home with Assistance,Home Health Transportation Needs at Discharge Private Vehicle
[2021-08-31 12:30] LABS: Glucose 104 mg/dL (80-110); Potassium 4.6 mmol/L (3.4-5.1); Sodium 140 mmol/L (137-145)
[2021-08-31] MEDS: FUROSEMIDE 40 MG/4 ML VIAL IV (12:54)
[2021-08-31] MEDS: SPIRONOLACTONE 25 MG TABLET PO (12:54)
--- NOTE | 2021-08-31 13:39 | PM.PN.1 ---
Subjective Subjective Date Patient Seen: 08/31/21 Time Patient Seen: 13:39 Interval history: Patient seen for follow-up of congestive heart failure. Patient was taking care of by hospitalist and was transferred to our service. We appreciate their evaluation and treatment. Patient this morning is feeling slightly better. Maybe slightly less short of breath. She is not sure her legs or any better. That is the thing that concerns her the most. Apparently her and her PMD have been working on this. She otherwise has no chest pain shortness of breath or other changes. Exam Vital Signs (past 8 hours): - 08/31/21 08:26 08/31/21 12:33 Temperature 98.1 F 98.1 F Pulse Rate 73 65 Respiratory Rate 20 20 Blood Pressure 115/52 L 123/53 L Pulse Oximetry 96 96 Oxygen Delivery Method Room Air Oxygen Flow Rate 0 Narrative Exam Narrative: Alert female sitting in chair with legs up in no acute distress. Heart is well controlled rate with no murmur clicks rubs or gallops. Irregular. Lungs with basilar crackles. Extremities left is 2+ edema right is of [place] edema with some erythema and some leaking. No active source. Objective Labs Result Diagrams: 08/30/21 17:00 08/31/21 12:13 Labs: Laboratory Results - last 24 hr 08/30/21 08/30/21 08/30/21 17:00 17:00 17:00 WBC 6.6 RBC 4.49 Hgb 12.1 Hct 37.5 MCV 83.5 MCH 27.0 MCHC 32.4 RDW 16.5 H Plt Count 206 Neut % (Auto) 70.8 Lymph % (Auto) 16.7 L [place] % (Auto) 9.9 Eos % (Auto) 1.3 L Baso % (Auto) 1.3 Neut # (Auto) 4700 Lymph # (Auto) 1100 [place] # (Auto) 700 Eos # (Auto) 100 Baso # (Auto) 100 PT INR Sodium 140 Potassium 4.5 Chloride 109 H Carbon Dioxide 20 L BUN 21 H Creatinine 1.08 H Estimated GFR 49.9 L BUN/Creatinine Ratio 19.4 Glucose 110 Lactate 1.5 Calcium 9.6 Total Bilirubin 1.6 H AST 64 H ALT 43 H Alkaline Phosphatase 104 Total Creatine Kinase CK-MB (CK-2) CK-MB (CK-2) Rel Index Troponin I NT-Pro-B Natriuret Pep 3410 H Total Protein 7.8 Albumin 4.1 Globulin 3.7 Albumin/Globulin Ratio 1.1 Urine RBC Urine WBC Ur Squamous Epith Cells Ur Transition Epith Cell Urine Bacteria Granular Casts Ur Culture Indicated? SARS-CoV-2 (PCR) 08/30/21 08/30/21 08/30/21 17:00 17:00 17:49 WBC RBC Hgb Hct MCV MCH MCHC RDW Plt Count Neut % (Auto) Lymph % (Auto) [place] % (Auto) Eos % (Auto) Baso % (Auto) Neut # (Auto) Lymph # (Auto) [place] # (Auto) Eos # (Auto) Baso # (Auto) PT 43.4 H INR 3.8 H Sodium Potassium Chloride Carbon Dioxide BUN Creatinine Estimated GFR BUN/Creatinine Ratio Glucose Lactate Calcium Total Bilirubin AST ALT Alkaline Phosphatase Total Creatine Kinase 63 CK-MB (CK-2) TNP CK-MB (CK-2) Rel Index TNP Troponin I < 0.012 NT-Pro-B Natriuret Pep Total Protein Albumin Globulin Albumin/Globulin Ratio Urine RBC Urine WBC Ur Squamous Epith Cells Ur Transition Epith Cell Urine Bacteria Granular Casts Ur Culture Indicated? SARS-CoV-2 (PCR) Negative 08/30/21 08/30/21 08/31/21 17:53 20:33 12:13 WBC RBC Hgb Hct MCV MCH MCHC RDW Plt Count Neut % (Auto) Lymph % (Auto) [place] % (Auto) Eos % (Auto) Baso % (Auto) Neut # (Auto) Lymph # (Auto) [place] # (Auto) Eos # (Auto) Baso # (Auto) PT INR Sodium 140 Potassium 4.6 Chloride 106 Carbon Dioxide 24 BUN 22 H Creatinine 1.22 H Estimated GFR 43.3 L BUN/Creatinine Ratio 18.0 Glucose 104 Lactate Calcium 9.7 Total Bilirubin AST ALT Alkaline Phosphatase Total Creatine Kinase CK-MB (CK-2) CK-MB (CK-2) Rel Index Troponin I < 0.012 NT-Pro-B Natriuret Pep Total Protein Albumin Globulin Albumin/Globulin Ratio Urine RBC None seen Urine WBC 1-5/hpf Ur Squamous Epith Cells 1-5 /hpf Ur Transition Epith Cell 1-5/hpf Urine Bacteria None seen Granular Casts 1-5/lpf Ur Culture Indicated? Cult not indicated SARS-CoV-2 (PCR) [facility] Medical History (Updated 08/31/21 @ 00:29 by Suha Chisholm MD) Chronic venous stasis dermatitis DVT (deep venous thrombosis) Hypertension Longstanding persistent atrial fibrillation Surgical History (Updated 08/31/21 @ 00:30 by Suha Chisholm MD) History of embolectomy Family History (Updated 08/31/21 @ 00:30 by Suha Chisholm MD) Father Advanced cirrhosis of liver Social History household members: none Smoking Status: Never smoker Assessment & Plan Assessment & Plan narrative: Decompensated congestive heart failure. BMP is pending for today. But she feels slightly better. Difficult to actually say at this point. Will repeat BMP tomorrow patient had her IV infiltrate and she has got slightly worsened kidney failure will DC IV an add b.i.d. Lasix hopefully this will be adequate for continued diuresis. Will see what weight does. Will see how she is symptomatically and see what her legs look like tomorrow. Echo is pending. Will need to evaluate before discharge. Whether this is secondary to AFib or some other process unclear at this time but will need to figure out before discharge. Rate seems to be well controlled so I do not think it is related to that but hard to tell. History of saddle emboli. CT negative appears to be stable otherwise. Will follow. Continue Xarelto. Morbid obesity. Dietary consult. Certainly not improving her venous stasis and will have to follow. Code status full DVT prophylaxis on Xarelto. Disposition. Hopefully patient will be doing well and stable with both kidney function and diuresis and will be able to do discharge tomorrow. Will need to evaluate at that time for that and will need to follow up echo. Patient understands questions answered. 30 minutes spent with patient reviewing chart, time with Nursing, dictating. Time Spent With Patient Critical Care time: I spent a total of [] minutes of critical care time on this patient's care today; this time is exclusive of procedural time.
[2021-09-01 02:03] VITALS: BP 126/48; PULSE 69; RESP 18; TEMP 36.1; O2SAT 94
[2021-09-01 06:00] VITALS: BP 145/52; PULSE 80; RESP 20; TEMP 37.1; O2SAT 95
[2021-09-01 07:16] LABS: BUN Creatinine Ratio 17.5 (6-22); Blood Urea Nitrogen 22 mg/dL (7-17); Calcium 9.9 mg/dL (8.4-10.2); Carbon Dioxide 22 mmol/L (22-32); Chloride 107 mmol/L (98-107); Estimated Glomerular Filt Rate 41.7 mL/min (>60); Glucose 92 mg/dL (80-110); HEMOLYSIS < 15 (0-50); Potassium 4.4 mmol/L (3.4-5.1); Sodium 141 mmol/L (137-145)
[2021-09-01 07:24] LABS: NT-proBNP (BNP-Adult 18+) 3440 pg/mL (<125)
[2021-09-01 07:46] VITALS: BP 135/46; PULSE 75; RESP 18; TEMP 36.6; O2SAT 95
[2021-09-01] MEDS: RIVAROXABAN 10 MG TABLET 20 MG PO (08:30)
[2021-09-01] MEDS: AMLODIPINE 5 MG TABLET 10 MG PO (08:31)
[2021-09-01] MEDS: POTASSIUM CHLORIDE 20 MEQ TAB PO (08:31)
[2021-09-01 08:33] VITALS: BP 135/46
[2021-09-01] MEDS: FUROSEMIDE 40 MG TABLET PO (08:36)
--- NOTE | 2021-09-01 09:06 | PM.DS.1 ---
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 Reports good urination response to lasix PO. weight increased per bed weight but feeling fine. Discharge Providers Provider Date of admission: 08/30/21 19:57 Discharge Date: 09/01/21 Consults: 08/31/21 00:12 Consult to Dietitian, Adult Routine Comment: diet Reason For Exam: obesity/chf diet Consult to Occupational Therapy Evaluate & Treat Comment: Physician Instructions: Evaluate and treat Consult to Physical Therapy Evaluate & Treat Comment: Physician Instructions: Evaluate and Treat Discharge provider: Thanh Sawyer MD Summary Hospital Course Discharge Diagnosis: acute exacerbation of congestive heart failure, diastolic with preserved ejection fraction Hospital Course: Ms. Tang was dxed with first episode of acute CHF exacerbation, diuresed and echo confirmed EF 60-65% with rate controlled afib. She was able to work with PT and ambulate and her kidney function stabilized on PO lasix instead of IV with good urination output. We discussed the need for home health and cardiology follow up with daily weight tracking. Status at Discharge Cognitive/behavioral status at discharge: at baseline, oriented Functional status at discharge: uses cane/walker Overall status at discharge: patient is progressing back to baseline Exam Vital Signs (past 8 hours): - 09/01/21 02:03 09/01/21 06:00 09/01/21 07:46 Temperature 97 F L 98.8 F 97.8 F Pulse Rate 69 80 75 Respiratory Rate 18 20 18 Blood Pressure 126/48 L 145/52 H 135/46 L Pulse Oximetry 94 95 95 09/01/21 08:33 Temperature Pulse Rate Respiratory Rate Blood Pressure 135/46 L Pulse Oximetry Oxygen Delivery Method Room Air Oxygen Flow Rate 0 Narrative Exam Narrative: cheerful sitting up eating breakfast Const General: cooperative and healthy appearing HENMT Head: normal to inspection and atraumatic Resp Other: good air movement, clear to auscultation bilaterally Cardio Other: irregularly irregular rhythm with normal rate, consensual pulses GI Other: soft nontender nondistended Skin Other: 6cm round inflamed patch on back stable compared to outpatient with some crusting. scaling vascular rash on shins R>L Extrem Other: woody edema of both shins R>L with pitting edema up to knee Psych Appearance: well kempt Mental Status: mental status grossly normal Objective Labs Result Diagrams: 08/30/21 17:00 09/01/21 06:45 Labs: Laboratory Results - last 24 hr 08/31/21 09/01/21 09/01/21 12:13 06:45 06:45 Sodium 140 141 Potassium 4.6 4.4 Chloride 106 107 Carbon Dioxide 24 22 BUN 22 H 22 H Creatinine 1.22 H 1.26 H Estimated GFR 43.3 L 41.7 L BUN/Creatinine Ratio 18.0 17.5 Glucose 104 92 Calcium 9.7 9.9 NT-Pro-B Natriuret Pep 3440 H [facility] Medical History (Updated 08/31/21 @ 00:29 by Suha Chisholm MD) Chronic venous stasis dermatitis DVT (deep venous thrombosis) Hypertension Longstanding persistent atrial fibrillation Surgical History (Updated 08/31/21 @ 00:30 by Suha Chisholm MD) History of embolectomy Family History (Updated 08/31/21 @ 00:30 by Suha Chisholm MD) Father Advanced cirrhosis of liver Social History household members: none Smoking Status: Never smoker Discharge Assessment & Plan Assessment and Plan Assessment: #Decompensated diastolic congestive heart failure.? Continue b.i.d. Lasix for continued diuresis.? Improving symptomatically Echo shows EF 60-65%.?? ok to dc home with HH for continued PO diuresis we discussed weight tracking #Acute kidney injury to 3B in setting of CKD 3a continue lasix po and hydrate po monitor as outpt #History of saddle pulmonary embolus.? CT negative.? Continue Xarelto.? #Morbid obesity.? Dietary consult.? Certainly not improving her venous stasis and will have to follow. #hypertension holding metorpolol and lisinoprol, continue amlodipine and spirinolactone, reeval as outpt Code status full DVT prophylaxis on Xarelto.? Disposition.? echo reassuring, will DC home with HH to f/u with PCP within the week Discharge Plan Discharge Plan Patient Disposition: Home Health Service Transfer to: Home Health, Other Provider Discharge Comment: f/u with my office within the week please Discharge orders & Medications Prescriptions: New furosemide 40 mg Tablet 40 mg PO 0800,1700 Qty: 60 0RF Continued Xarelto 20 mg tablet See Rx Instructions .ROUTE .COMPLEX 0RF Rx Instructions: Take 1 tablet by mouth every day amlodipine 10 mg tablet See Rx Instructions .ROUTE .COMPLEX 0RF Label Comments: take 1 tablet by mouth once daily Rx Instructions: Take 1 tablet by mouth once daily spironolactone 25 mg tablet See Rx Instructions .ROUTE .COMPLEX 0RF Rx Instructions: Take 1 tablet every day Discontinued lisinopril 20 mg tablet See Rx Instructions .ROUTE .COMPLEX 0RF Rx Instructions: Take 1 tablet 2 times daily 30 minutes prior to meals metoprolol succinate 100 mg tablet extended release 24 hr See Rx Instructions .ROUTE .COMPLEX 0RF Rx Instructions: Take 1 tablet twice daily Follow up/Referrals: Thanh Sawyer MD [Physician] - 09/03/21 2:15 pm (appt:09/03 @ 2:15 w/dr sawyer ) Diet/Activity/Treatments Diet: Low-sodium Skin/Wound/Dressing Care Report to your healthcare provider any signs of infection, such as:: chills, fever and increased pain Discharge Data Attending Provider: Thanh Sawyer
--- NOTE | 2021-09-01 09:39 | CM.DPC ---
Addendum entered by Rosie Sparks R.N. 09/01/21 11:52: Patient is now open to home health. She is ok using [facility]. She has brochures. Called Chato, who is the liason at [facility]. He indicated, they should be able to see her tomorrow. Faxed over face sheet, orders, face to face, P.T, and O.T. notes, H&P and DC Summary. Let Chato know that patient is the point of contact. Dr. Judd was updated, and he is planning on putting in DC orders. Rosie Sparks RN/Legal Billing Coordinator Original Note: DCP Cont: Dr. Judd had come by the office mentioning discharging patient. He felt that she would benefit with home health, nursing and P.T. He stated, she needs to move around more. Spoke to patient. Brought in three brochures, [employer], [employer], and [employer]. Patient stated, I don't see why I really need it, I'm self sufficient, and I walk around the house getting exercise. Let her know that nursing can come out and evaluate her legs, weights, and P.T. can evaluate for safety. She stated, My house is a mess, I don't really want anyone coming to my house. She stated, she will think about it, and this employment evaluator/case manager will follow up with her. P: DCP to revisit patient regarding decision for home health. Rosie Sparks RN/Legal Billing Coordinator
--- NOTE | 2021-09-01 10:32 | OT.IP.TRT ---
Occupational Therapy Treatment Note M2 OT-IP Current Condition Start: 08/31/21 14:24 Freq: Status: Active Protocol: Document 08/31/21 11:15 [facility] (Rec: 08/31/21 14:38 [facility] [id number]) Occupational Therapy Current Condition Current Condition Evaluation Date 08/31/21 Treatment Diagnosis Acute decompensated CHF Diagnosis Onset Date 08/31/21 M3 OT- IP Subjective and Pain Start: 08/31/21 14:24 Freq: Status: Active Protocol: Document 09/01/21 11:11 [facility] (Rec: 09/01/21 11:19 [facility] [id number]) OT- Subjective Occupational Therapy Visit Type Type Treatment Note Visit Start Time 10:18 Visit Stop Time 10:32 Total Visit Minutes 14 Occupational Therapy Visit Comments Patient Comments Pt agreed to talk to OT. Patient/Caregiver Goals TO go home. OT Pain Assessment Pain When Pain Assessed At Rest Pain Present Pain Present Denied Pain M4 OT- IP ADL's Start: 08/31/21 14:24 Freq: Status: Active Protocol: Document 09/01/21 11:11 [facility] (Rec: 09/01/21 11:19 [facility] [id number]) OT ADL-Dressing Comments OT Dressing Comments Pt not wanting to perform as states her set-up at home is much better. Pt did admit to having difficulty to get the heel of her shoe on over her feet at times. Able to show pt information of a foot funnel. OT ADL-Bathing Comments OT Bathing Comments Pt still insists on not having a shower chair or grab bars. Suggested for pt to have her son with her to try to get into and out of the shower when she is clothed, so she can be sure that she can do it safely. M5 OT- IP IADL's Start: 08/31/21 14:24 Freq: Status: Active Protocol: Document 08/31/21 11:15 [facility] (Rec: 08/31/21 14:38 [facility] [id number]) OT-Instrumental Activities of Daily Living Home Safety Awareness Home Safety Comments Pt insists that she will be fine after her swelling of her legs goes down. Able to go over energy conservation information with the pt. Medication Management Medication Management No Deficits Identified Money Management Money Management No Deficits Identified Meal Preparation Meal Preparation Comments Pt states does on her own but slowly. Pt may benefit from a cart or 4ww to move objects around. Pcb Designer Pcb Designer Comments Pt states does on her won but slowly. Pt may benefit from a cart or 4ww to move objects around. M6 OT- IP Functional Cognition Start: 08/31/21 14:24 Freq: Status: Active Protocol: Document 09/01/21 11:11 [facility] (Rec: 09/01/21 11:19 [facility] [id number]) Cognitive Factors Limiting Selfcare Function Cognitive Ability Safety Awareness Underestimates Need for Assistance Cognitive Comments Cognitive Assessment Comments Pt insistent on her care and initially not wanting to have any home health come out to the house. Pt asking therapist of how to work on her back due to tightness. Informed pt that home health can go over exercises in the home and look at overall safety in the house with her. Pt not wanting people in the house as has a lot on items around, but finally open to having home health come to her home, able to let case management know of her wishes. OT- Balance Assessment Sitting Balance and Reactions Static Sitting Balance Ability Good Dynamic Sitting Balance Ability Good Standing Balance and Reactions Static Standing Balance Ability Good Dynamic Standing Balance Ability Good M8 OT- IP Objective Assessments Start: 08/31/21 14:24 Freq: Status: Active Protocol: Document 08/31/21 11:15 [facility] (Rec: 08/31/21 14:38 [facility] [id number]) OT Gross Range of Motion Upper Extremity Range of Motion Assessment Within Functional Limits OT Strength Upper Extremity Strength Assessment Within Functional Limits M9 OT- IP Assessment and Plan Start: 08/31/21 14:24 Freq: Status: Active Protocol: Document 09/01/21 11:11 [facility] (Rec: 09/01/21 11:19 [facility] [id number]) OT Summary Assessment and Plan Potential Rehabilitation Potential Good Analytic Complexity at Evaluation Low Summary Progress Towards Goals Progressing Toward Goals Assessment Summary Pt feels capable of doing her ADl and IADl needs, able to suggested pt to get a foot funnel to assist to get her shoes on , shower chair, and grab bar for safety. Pt looking to go home and have home health. Pt not wanting to shower and state able to get her socks on better at home due to the appropriate height , surface, and angle for her needs. Pt to go home with home health. Goals Dressing Goal Independent Toileting Goal Independent Bathing Goal Independent Toilet Transfer Goal Independent Shower Transfer Goal Independent Patient/Caregiver Education Goal Demonstrate Energy Conservation and Pacing Days to Meet Goals 4 Frequency of Treatment Frequency Of Treatment Once a Day Treatment Plan OT Treatment Plan ADL Training,Functional Mobility,Patient/Family Education,Discharge Planning Discharge Recommendations OT Discharge Recommendations Home with Assistance,Home Health Home Equipment Needs shower chair, foot funnel, grab bar Transportation Needs at Discharge Private Vehicle
[2021-09-01] MEDS: SODIUM CHLORIDE 0.9% FLUSH 10 ML IV (10:43)
--- NOTE | 2021-09-01 11:30 | PT.IPTN ---
Physical Therapy Treatment Note M2 PT-IP Current Condition Start: 08/31/21 12:44 Freq: NEEDED Status: Active Protocol: Document 09/01/21 11:00 SP (Rec: 09/01/21 13:55 SP [id number]) Physical Therapy Current Condition Current Condition Evaluation Date 08/31/21 Treatment Diagnosis CHF; difficulty in walking Onset Date 08/30/21 M3 PT-IP Subjective Start: 08/31/21 12:44 Freq: NEEDED Status: Active Protocol: Document 09/01/21 11:00 SP (Rec: 09/01/21 13:55 SP [id number]) Subjective Physical Therapy Visit Type Type Treatment Note Visit Start Time 11:00 Visit Stop Time 11:30 Total Visit Minutes 30 Number of GM Visits 1 Physical Therapy Visit Comments Patient Comments agreeable to do PT Patient Goals return home with son to assist her as needed. Therapy Pain Assessment Pain When Pain Assessed During Mobility Pain Present Pain Present Pain Reported Location Right Lower Leg Scale Used not quantified Description With Movement Pain Behaviors Restlessness Pain Management Techniques Elevation,Modification of Treatment,Re-positioning, Timing of Activity with Medications M4 PT-IP Mobility and Gait Start: 08/31/21 12:44 Freq: NEEDED Status: Active Protocol: Document 09/01/21 11:00 SP (Rec: 09/01/21 13:55 SP [id number]) PT-Transfer Assessment Sit to and From Stand Sit to and from Stand Standby Assistance Equipment Transfer Assistive Device None Orthotic/Prosthetic Devices or Brace: No Transfers Transfer Destination Chair,Toilet Transfer Technique ambulated using no AD Transfer Ability Level of Assist Standby Assistance Comments Mobility Comments Pt sitting in chair. completed Sit>stand, gait no AD to toilet sBA seated flexed trunk but steady, decreased stance time RLE due to pain reported, stable. I in bathroom w/ use of grab bar. Pt ambulated to sink to wash hands. Continued gait into hallway approx 100 ft total no AD flexed trunk antalgic gait with report of some back pain, not able fully upright posture, stable. Completed 12 stairs B HR to assimulated 1 HR and top wall at home to bedroom CG> SBA> close S step to patterning. Complete 1 PF step using QC on L and walking dragline operator corner wall CG- 5% A to assimulated front step to enter home. Pt stated will be able to acquire QC from [employer] but has walking stick in mean time and confident her son can assist her. He is installing a grab bar at corner wall outside for support. Pt in chair when back to room. Call light and all needs in reach before left . Pt is ok to return home with son to assist her, recommending HHPT for strengthening due to back pain , Min support for ascend stairs to acclimate home. Gait Assessment Gait Gait Assistance Required: Standby Assistance Distance (Feet) 100 Able to Maintain Weight Bearing Status Yes During Gait Assistive Devices Assistive Device None,Gait Belt Orthotic/Prosthetic Devices or Brace: No Gait Deviations General Gait Pattern Antalgic,Decreased Stride Length,Decreased Feet Clearance,Flexed Trunk Factors Limiting Gait Function Factors Limiting Gait Function Decreased Activity Tolerance, Decreased Strength,Limited Range of Motion Comments Gait Comments See mobility comments. Stair Climbing Assessment Evaluation Level of Assist On Stairs Standby Assistance Devices Stair Climbing Assistive Devices Small Base Quad Cane,Right Railing Technique/Endurance Stair Climbing Direction Ascend and Descend Stair Climbing Technique Step to Step Number of Steps Climbed 3 Stair Climbing Set # Repetitions (reps) 4 Comments Stair Climbing Comments and 1 PF step Cg- 5%A w/QC on L with contact slight steading, while using grasp doorframe to assimulate home enterance. Pt reported her son will be ableto give that very little bit help and will be p utting a grab bar on corner wall to make easier for her. PT-Balance Assessment Sitting Balance and Reactions Static Sitting Balance Ability Normal Dynamic Sitting Balance Ability Normal Standing Balance and Reactions Static Standing Balance Ability Good Dynamic Standing Balance Ability Good M5 PT-IP Objective Assessments Start: 08/31/21 12:44 Freq: NEEDED Status: Active Protocol: Document 08/31/21 10:00 AB (Rec: 08/31/21 13:05 AB [id number]) Orientation Orientation/Cognition Level of Alertness Alert Orientation Name,Place Language Function Ability No Deficits Noted Safety Awareness Understands Safety Issues, Decreased Safety Awareness Memory Description No Deficits Noted Gross Range of Motion Lower Extremity ROM Impairments pt with difficulty with hip/ knee flexion due to LE swelling/increase girth Strength Lower Extremity Strength Hip 4-/5 Knee 4-/5 Coordination Assessment Gross Coordination Gross Coordination WNL Muscle Tone Muscle Tone WNL Yes M6 PT-IP Treatment Start: 08/31/21 12:44 Freq: NEEDED Status: Active Protocol: Document 09/01/21 11:00 SP (Rec: 09/01/21 13:55 SP [id number]) Physical Therapy Treatment Education Education Provided Safety M7 PT-IP Assessment and Plan Start: 08/31/21 12:44 Freq: NEEDED Status: Active Protocol: Document 09/01/21 11:00 SP (Rec: 09/01/21 13:55 SP [id number]) PT Summary Assessment and Plan Potential Rehabilitation Potential Good Status of Condition at Evaluation Stable Summary Impairments Pain,ROM,Strength,Balance, Coordination,Sensation,Tone, Cognition,Bed Mobility, Transfers,Gait,Activity Tolerance Progress Towards Goals Progressing Toward Goals,Slow Progress due to Activity Tolerance Assessment Summary SBA during standing mobility including 12 stairs B HR for ability to get up to bedroom. Completed 1 PF step w/ QC CG- 5% A(stated can get from [employer], has friends to call acquire), Gait 100 ft without AD, steady. Goals Bed Mobility Goal Independent Transfer Goal Independent Gait Goal Independent Gait Distance 200 Other Goals up/down platform step using AD /BI MANAGER or without AD CGA to SBA Days to Meet Goals 5 Frequency of Treatment Frequency Of Treatment Once a Day Treatment Plan Physical Therapy Treatment Plan Bed Mobility Training,Transfer Training,Gait Training, Therapeutic Exercise,Balance Retraining,Discharge Planning, Hot or Cold Pack,Neuromuscular Re-ed,Coordination Retraining Other Recommendations and Next Treatment Le ex, dynamic standing Focus balance endurance gait. Recommendations To Nursing Amount of Assist Needed Standby Assistance Discharge Recommendations PT Discharge Recommendations Home with Assistance,Home Health Equipment Needed for Home Before QC, friends will assist Discharge getting for her. Transportation Needs at Discharge Private Vehicle
[2021-09-01 11:37] VITALS: BP 144/62; PULSE 74; RESP 16; TEMP 36.9; O2SAT 97
[2021-09-01 15:00] VITALS: O2SAT 95
--- NOTE | 2021-09-01 16:27 | PC.NURSE ---
Pt worked w/ PT Discharge orders recieved. HL discontinued intact, Tele removed D/C instructions given w/appareent understanding Escorted by staff via W/C to vehicle.
== END 2021-09-01 16:10 | disposition home health service (06) ==
LOC: ED 19:58 → AC 08-31 03:42
PROVIDERS: Emergency Medicine; Family Medicine; Internal Medicine; Admitting Provider Family Medicine; Emergency Provider Student in an Organized Health Care Education/Training Program; Visit Provider Family Medicine
DX: I50.33 Acute on chronic diastolic (congestive) heart failure (principal); I48.11 Longstanding persistent atrial fibrillation; I13.0 Hypertensive heart and chronic kidney disease with heart failure and stage 1 through stage 4 chronic kidney disease, or unspecified chronic kidney disease; Z79.01 Long term (current) use of anticoagulants; N17.9 Acute kidney failure, unspecified; N18.31 Chronic kidney disease, stage 3a; E66.01 Morbid (severe) obesity due to excess calories; Z86.718 Personal history of other venous thrombosis and embolism; Z86.711 Personal history of pulmonary embolism; Z20.822 Contact with and (suspected) exposure to COVID-19
CPT/HCPCS: 36415; 71046; 71275; 80048; 80053; 81003; 81015; 82550; 83605; 83880; 84484; 85025; 85610; 87635; 93005; 93010; 93306; 96374; 96375; 97116; 97161; 97165; 97530; 97535; 99284; C9803; G0378; J1940; Q9967

== ENCOUNTER → 2023-07-14 11:39 | Outpatient (CLI) | payer MEDICARE, OTHER, SELFPAY ==
[2021-08-30 20:49] VITALS: BMI 45.4
--- NOTE | 2023-07-14 11:42 | DI.RAD.S_ITS ---
PROCEDURE: XR CHEST 2V INDICATIONS: COVID-19 TECHNIQUE: 2 views of the chest were acquired. COMPARISON: [facility], CR, XR CHEST 2V, 08/30/2021, 16:24. FINDINGS: Surgical changes and devices: None. Lungs and pleura: Mild diffuse interstitial prominence. No focal consolidation. No pneumothorax or pleural effusion. Mediastinum: The cardiomediastinal contours remain stable with enlargement of the cardiac silhouette. Bones and chest wall: No suspicious bony abnormalities. Soft tissues appear unremarkable. IMPRESSION: Diffuse interstitial prominence without focal consolidation likely representing an infectious/inflammatory process given reported history of COVID-19 infection. No focal airspace disease/pneumonia identified. Cardiomegaly. Dictated by: Drew Martin M.D. on 07/14/2023 at 14:27 Approved by: Drew Martin M.D. on 07/14/2023 at 14:28
== END ==
PROVIDERS: PCP Family Medicine; Referring Provider Family Medicine; Visit Provider Family Medicine
DX: U07.1 COVID-19 (principal); R05.1 Acute cough
CPT/HCPCS: 71046

== ENCOUNTER → 2023-12-01 | Outpatient (CLI) | payer MEDICARE, OTHER, SELFPAY ==
[2021-08-30 20:49] VITALS: BMI 45.4
--- NOTE | 2023-12-01 14:23 | DI.RAD.S_ITS ---
PROCEDURE: XR DEXA AXIAL SKELETON INDICATIONS: Asymptomatic menopausal state COMPARISON: None. FINDINGS: This blank DEXA report has been sent in error by the PACS system. The correct and complete report will be forthcoming in 1-2 days. Thank you for your patience and understanding. Dictated by: Brad Davila M.D. on 12/01/2023 at 15:43 Approved by: Brad Davila M.D. on 12/01/2023 at 15:43
--- NOTE | 2023-12-01 14:39 | DI.RAD.S_ITS ---
Bone Density Report Name: TORO ARENAS Age: 73 Sex: Female Ethnicity: White Date of : 1950 Indication: postmenopausal; screening for osteoporosis; Referring Provider: MARLEN RÍOS Study: Bone densitometry was performed. Exam Date: December 01, 2023 Accession number: [id number] Bone Density: Region BMD T-score Z-score Classification AP Spine(L1-L4) 1.145 0.9 3.3 Normal Femoral Neck (Left) 0.755 -0.9 1.2 Normal Total Hip (Left) 0.926 -0.1 1.7 Normal Femoral Neck (Right) 0.718 -1.2 0.9 Osteopenia Total Hip (Right) 0.805 -1.1 0.7 Osteopenia Total Hip Mean 0.866 -0.6 1.2 Normal World Health Organization criteria for BMD impression classify patients as: Normal (T-score at or above -1.0), Osteopenia (T-score between -1.0 and -2.5), or Osteoporosis (T-score at or below -2.5). 10-year Fracture Risk(1): Major Osteoporotic Fracture 9.0% Hip Fracture 1.4% Reported Risk Factors: [place] (), Neck BMD=0.718, BMI=40.7 (1) FRAX(R) Version 3.08. Fracture probability calculated for an untreated patient. Fracture probability may be lower if the patient has received treatment. Impression: The patient has low bone mass, based on the Right Femoral Neck T-score. The patient has an estimated ten-year risk of hip fracture of 1.4% and an estimated ten-year risk of major fracture of 9%, based on the WHO FRAX algorithm. Discussion: BONE DENSITY IS LOW AT ONE OR MORE SKELETAL SITES. This patient's lowest T-score is low at one or more skeletal sites. It meets the World Health Organization's (WHO) criteria for ?low bone mass? (T-score between -1.0 and -2.5). The patient's 10-year risk of fracture as calculated by FRAX is less than the threshold where pharmacological therapy is recommended by the National Osteoporosis Foundation (NOF). However, all treatment decisions require clinical judgment and consideration of individual patient factors, including patient preferences, comorbidities, previous drug use, risk factors not captured in the FRAX model (e.g., frailty, falls, vitamin D deficiency, increased bone turnover, interval significant decline in bone density) and possible under or overestimation of fracture risk by FRAX. The patient should follow a healthful lifestyle (good nutrition with adequate calcium and vitamin D, and appropriate weight-bearing exercise). Follow-Up: Consider repeating this study in 2 to 3 years to reassess this patient's status, or sooner if there is some new clinical indication. Reported by: JAMES MANUEL MD on 12/01/2023 7:23:00 PM.
== END ==
PROVIDERS: PCP Family Medicine; Referring Provider Family Medicine; Visit Provider Family Medicine
DX: Z78.0 Asymptomatic menopausal state (principal); M85.851 Other specified disorders of bone density and structure, right thigh
CPT/HCPCS: 77080

== ENCOUNTER 2023-12-26 07:24 | Day surgery (SDC) | payer MEDICARE, OTHER, SELFPAY ==
[2021-08-30 20:49] VITALS: BMI 45.4
--- NOTE | 2023-12-26 | PATH_ITS ---
[facility] Accession Number: [id number] No. of containers..02 Tissue . 01 Material submitted: . PART A: ileo-cecal valve - ILLEOCECAL VALVE POLYP PART B: colon - ASCENDING POLYP . 01 Diagnosis: A. ILEOCECAL VALVE, POLYP: Small bowel mucosa with submucosal mature adipose tissue consistent with benign lipoma. Negative for atypia, epithelial dysplasia, and malignancy. . B. ASCENDING COLON, POLYP: Sessile serrated adenoma. MRV 01/01/2024 1220 Local . 01 Electronically signed: . Mallory Hill MD, Pathologist NPI- [id number] . 01 Gross description: . Part A: ILLEOCECAL VALVE POLYP: Received in formalin are 3 fragment(s) of herrera, soft tissue measuring 0.7 x 0.6 x 0.5 cm to 1.1 x 0.7 x 0.6 cm submitted entirely in 1 cassette(s) Part B: ASCENDING POLYP: Received in formalin are multiple fragment(s) of herrera, soft tissue measuring 0.2 x 0.2 x 0.1 cm to 0.8 x 0.6 x 0.3 cm submitted entirely in 1 cassette(s) /ORAL 12/28/2023 0014 Local . 01 Pathologist provided ICD-10: D12.2 . 01 CPT . 322228, [id number] Specimen Comment: A courtesy copy of this report has been sent to [phone] Performed at: 01 [facility] [address] [place] [address] [address] [facility], [place], [place] [id number] MD Javier Smith MD Phone: [phone]
[2023-12-26 07:47] VITALS: BP 166/77; PULSE 93; RESP 18; TEMP 36.8; O2SAT 96
[2023-12-26] MEDS: LACTATED RINGERS 1,000 ML 42 ML IV (08:01)
--- NOTE | 2023-12-26 08:17 | PM.PREOP ---
Pre-operative Note COVID-19 COVID-19 status: Not tested Interval Note History & Physical reviewed/Exam performed by Physician: Yes Changes to H&P: No ASA Class (for procedural sedation): III
--- NOTE | 2023-12-26 09:04 | P.OP.COLON_ITS ---
Operative Date/Time/Diagnoses Date of procedure: 12/26/23 Time of procedure: 09:04 Pre-op diagnosis: Positive Cologuard test Post-op diagnosis: same Procedure & Clinicians Study performed: Colonoscopy Same procedure as scheduled: Yes Surgeon: Keith Nuñze Procedure Notes Procedure in detail: Surgeon: Keith Nuñez MD Anesthesia: Mallory Mayfield CRNA Procedure: The patient was brought to the endoscopy suite, placed in left lateral decubitus position. The patient was connected to monitoring devices. A time-out was performed. Sedation was administered. Once the patient was adequately sedated, a digital rectal exam was performed and was normal. The scope was then inserted and advanced to the cecum where the appendiceal orifice was identified and photographed. The scope was then slowly withdrawn over greater than 6 minutes. The mucosa was thoroughly inspected. There was 2 cm polypoid mass coming off ileocecal valve mucosa. It was removed with hot snare and then divided into 3 pieces to be suctioned into the trap. There was good hemostasis. There was a 1.5 cm flat polyp in the ascending colon removed with 3 passes of the hot snare. Good hemostasis was observed. No other abnormalities were found. The scope was retroflexed in the rectum. No other abnormalities we re seen. The scope was straightened and removed. The patient was awakened and brought to recovery. Scope withdrawal time: 21 minutes Sedation time: 28 minutes EBL: 2 mL Findings: 2 cm polypoid mass growing off the ileocecal valve and 1.5 cm flat polyp in the ascending colon Post-procedure Disposition: PACU
[2023-12-26 09:07] VITALS: BP 126/61; PULSE 66; RESP 17; TEMP 36.4; O2SAT 95
[2023-12-26 09:11] VITALS: BP 123/72; PULSE 66; RESP 17; O2SAT 97
[2023-12-26 09:15] VITALS: BP 144/73; PULSE 66; RESP 17; TEMP 36.1; O2SAT 98
== END 2023-12-26 09:28 | disposition home or self-care (01) ==
PROVIDERS: PCP Family Medicine; Referring Provider Surgery; Visit Provider Surgery
PROC: 0DJD8ZZ Inspection of Lower Intestinal Tract, Via Natural or Artificial Opening Endoscopic (ICD-10-PCS; CPT 45378; principal; 2023-12-26 08:15)
DX: Z12.11 Encounter for screening for malignant neoplasm of colon (principal); R19.5 Other fecal abnormalities; D12.2 Benign neoplasm of ascending colon; D17.79 Benign lipomatous neoplasm of other sites
CPT/HCPCS: 45385; J2704

== ENCOUNTER → 2024-03-22 15:07 | Outpatient (CLI) | payer MEDICARE, OTHER, SELFPAY ==
[2021-08-30 20:49] VITALS: BMI 45.4
--- NOTE | 2024-03-22 15:08 | DI.US.S_ITS ---
PROCEDURE: US EXTREMITY NONVASC LOWER RT INDICATIONS: HX OF DVT-STAT TECHNIQUE: Real-time scanning was performed of the lower extremities. , with image documentation. COMPARISON: None. FINDINGS: Visualization of the deep venous structures in the right lower extremity demonstrate no evidence of deep venous thrombosis. Superficial femoral, common femoral, profundal and popliteal veins are widely patent as well as visualized calf veins. Normal compressibility is present. IMPRESSION: No visualized deep venous thrombosis. Dictated by: Madelaine Philip M.D. on 03/22/2024 at 17:29 Approved by: Madelaine Philip M.D. on 03/22/2024 at 17:31
== END ==
PROVIDERS: PCP Family Medicine; Referring Provider Family Medicine; Visit Provider Family Medicine
DX: R60.0 Localized edema (principal); Z86.718 Personal history of other venous thrombosis and embolism; I87.2 Venous insufficiency (chronic) (peripheral)
CPT/HCPCS: 76882

== ENCOUNTER 2025-08-04 12:39 | Emergency (ER) | payer MEDICARE, OTHER, SELFPAY ==
[2021-08-30 20:49] VITALS: BMI 45.4
[2025-08-04 13:14] VITALS: BP 201/93; PULSE 72; RESP 18; TEMP 36.9; O2SAT 98; BMI 39.1
--- NOTE | 2025-08-04 13:22 | DI.US.S_ITS ---
PROCEDURE: US [facility] VENOUS LOW EXTREM RT INDICATIONS: swelling, pain, hx PE TECHNIQUE: Real-time imaging, as well as color and pulse Doppler interrogation, were performed of the lower extremity deep veins from the inguinal ligament to the popliteal fossa, with documentation of the visualized calf veins. COMPARISON: [facility], [facility] VENOUS LOW EXTREM RT, 05/29/2020, 13:34. FINDINGS: Posterior tibial and peroneal veins are not seen. Evaluation limited due to edema and body habitus. The common femoral, femoral, popliteal, and the visualized calf veins are normally compressible, and free of intraluminal thrombus. Color and pulse Doppler demonstrate normal phasic intraluminal flow. There is normal augmentation response to distal compression maneuver. IMPRESSION: Nonvisualization of the peroneal and posterior tibial veins. Edema. No findings of lower extremity deep venous thrombosis. Dictated by: Joan Chapin M.D. on 08/04/2025 at 14:03 Approved by: Joan Chapin M.D. on 08/04/2025 at 14:05
[2025-08-04 17:02] VITALS: BP 188/88; PULSE 82; RESP 16; O2SAT 97
--- NOTE | 2025-08-05 19:37 | ED.EXTPRO ---
HPI - Extremity Problem General Chief complaint: Extremity Problem,Nontraumatic Stated complaint: Poss blood clot in R legm, PC ref Time Seen by Provider: 08/04/25 14:16 Source: patient Mode of arrival: Ambulatory History of Present Illness HPI Narrative: 74-year-old female with past medical history saddle PE, on Xarelto presents to the ED with right lower extremity erythema, pain that started about mid calf and is spreading of the back of her thigh. Patient denies fever, chills, chest pain, shortness of breath, nausea, vomiting, abdominal pain, lightheadedness, dizziness, syncope. Patient is wearing compression stockings, some weeping wounds to the lower leg and upper leg edema are noted on exam. Related Data Home Medications ?Medication ?Instructions ?Recorded ?Confirmed amlodipine 10 mg tablet See Rx Instructions .Route .COMPLEX 08/30/21 12/26/23 rivaroxaban 20 mg tablet (Xarelto) See Rx Instructions .Route .COMPLEX 08/30/21 12/26/23 metoprolol succinate 50 mg 25 mg PO DAILY 12/04/23 12/26/23 tablet,extended release 24 hr rosuvastatin 5 mg tablet 5 mg PO DAILY 12/04/23 12/26/23 spironolactone 25 mg tablet 25 mg PO DAILY 12/04/23 12/26/23 torsemide 20 mg tablet 20 mg PO DAILY 12/04/23 12/26/23 Previous Rx's ?Medication ?Instructions ?Recorded cephalexin 500 mg capsule 500 mg PO QID 5 days #20 caps 08/04/25 Allergies Allergy/AdvReac Type Severity Reaction Status Date / Time No Known Drug Allergies Allergy Verified 08/04/25 13:22 Review of Systems Constitutional Constitutional: Denies chills, Denies fatigue, Denies fever(s), Denies frequent falls, Denies lethargy and Denies weakness Eyes Eyes: Denies change in vision, Denies eye discharge, Denies irritation and Denies loss of vision ENT Ears, Nose, Mouth, and Throat: Denies change in voice, Denies dizziness, Denies neck pain, Denies sore throat and Denies throat swelling Cardiovascular Cardiovascular: Denies chest pain, Denies irregular heart rhythm, Denies lightheadedness, Denies palpitations, Denies dyspnea, Denies dyspnea on exertion and Denies orthopnea Respiratory Respiratory: Denies cough, Denies dyspnea, Denies dyspnea on exertion and Denies wheezing Gastrointestinal Gastrointestinal: Denies abdominal pain, Denies change in bowel habits, Denies diarrhea, Denies nausea and Denies vomiting Musculoskeletal Musculoskeletal: Denies neck pain and Denies numbness Integumentary/Breasts Skin/Breast: Denies pruritus, Denies erythema, Denies rash and Denies wounds Comments: Right leg redness, warmth, swelling Neurologic Neurologic: Denies behavioral changes, Denies confusion, Denies dizziness, Denies frequent falls, Denies loss of vision, Denies numbness and Denies weakness Psychiatric Psychiatric: Denies anxiety, Denies behavioral changes, Denies confusion, Denies depression, Denies homicidal ideation and Denies suicidal ideation Endocrine Endocrine: Denies fatigue, Denies flushing and Denies palpitations Hematologic/Lymphatic Hematologic/Lymphatic: Denies easy bruising Allergic/Immunologic Allergic/Immunologic: Denies urticaria, Denies throat swelling and Denies wheezing Patient History Medical History Stage 3a chronic kidney disease Ulcer of varicose vein of lower extremity Afib Pedal edema Chronic venous stasis dermatitis Longstanding persistent atrial fibrillation Hypertension DVT (deep venous thrombosis) Surgical History History of embolectomy Family History Father Advanced cirrhosis of liver Social History household members: none alcohol intake: current tobacco type: cigarettes alcohol intake frequency: holidays/special occasions only Exam Narrative Exam Narrative: Const General:?cooperative, healthy appearing and comfortable [facility] Head:?normal to inspection Ears:?hearing grossly normal bilaterally Nose:?external nose normal Face and sinus:?normal facial exam and sinuses nontender Mouth:?oral mucosae normal Throat:?posterior oropharynx normal Eyes General:?appearance normal, both eyes and all related structures Neck Neck:?normal visual inspection and no lymphadenopathy noted Resp Effort & Inspection:?normal respiratory effort Auscultation:?clear to auscultation bilaterally Cardio Rate:?regular rate Rhythm:?regular rhythm Integumentary There is erythema, warmth, swelling to the back of the right thigh, right upper calf. Neurovascularly intact. Patient is wearing compression stockings. There are some weeping wounds in the lower bilateral legs. Neuro General:?patient alert, patient awake and patient oriented x3 Initial Vital Signs Initial Vital Signs: Vital Signs Temperature 98.4 F 08/04/25 13:14 Pulse Rate 72 08/04/25 13:14 Respiratory Rate 18 08/04/25 13:14 Blood Pressure 201/93 H 08/04/25 13:14 Pulse Oximetry 98 08/04/25 13:14 Oxygen Delivery Method Room Air 08/04/25 13:14 MDM - Extremity (Nontraumatic) MDM Narrative Medical decision making narrative: 74-year-old female with past medical history saddle PE, on Xarelto presents to the ED with right lower extremity erythema, pain that started about mid calf and is spreading of the back of her thigh. Ultrasound shows Nonvisualization of the peroneal and posterior tibial veins. There is enema. No findings of lower extremity deep venous thrombosis. On exam, patient's symptoms are most consistent with cellulitis. Prescribed antibiotics. Recommend follow-up with PCP as soon as possible. ED return precautions discussed with patient. Patient verbalized understanding. Medical records reviewed: Yes Discharge Plan Departure Patient Disposition: Home Clinical Impression: Cellulitis Instructions: DI for Cellulitis -- Adult Activity Restrictions/Additional Instructions: You were evaluated in the emergency department today for right leg redness, pain. The ultrasound was negative for DVTs. Your symptoms are most consistent with cellulitis, which is a skin infection. You are being prescribed 5 days of antibiotics for it. Please take antibiotics as prescribed. Return to the ED if you have worsening symptoms, chest pain, shortness of breath. Prescriptions: New cephalexin 500 mg capsule 500 mg PO QID 5 Days Qty: 20 0RF No Action metoprolol succinate 50 mg tablet extended release 24 hr 25 mg PO DAILY rosuvastatin 5 mg tablet 5 mg PO DAILY spironolactone 25 mg tablet 25 mg PO DAILY torsemide 20 mg tablet 20 mg PO DAILY Rx Instructions: 5 days a week Xarelto 20 mg tablet See Rx Instructions .ROUTE .COMPLEX Rx Instructions: Take 1 tablet by mouth every day amlodipine 10 mg tablet See Rx Instructions .ROUTE .COMPLEX Patient Comments: take 1 tablet by mouth once daily Rx Instructions: Take 1 tablet by mouth once daily Referrals: Thanh Judd MD [Primary Care Provider, Family Practice] Stand Alone Forms: Patient Portal/API
== END 2025-08-04 17:03 | disposition home or self-care (01) ==
PROVIDERS: Emergency Provider Student in an Organized Health Care Education/Training Program; PCP Family Medicine
DX: L03.115 Cellulitis of right lower limb (principal); Z86.711 Personal history of pulmonary embolism; Z79.01 Long term (current) use of anticoagulants
CPT/HCPCS: 93971; 99281; 99283